=== PATIENT | female | born 1995 | race American Indian/Alaskan Native ===

== ENCOUNTER 2018-04-17 13:38 | Emergency (ER) | payer MEDICAID ==
[2018-04-17 14:01] VITALS: BP 118/79
--- NOTE | 2018-04-17 14:01 | Emergency Department Report ---
Blank Doc - Documentation Documentation: C/o of fainting about 1hour [facility]LOAD[facility] [employer] at [facility]. Reports being preg 4 1/2 months p reg. Is followed by [facility]. . Hx/o of anemia. No vag bleeding or Vag d/c. Having left abd pain. 05/29. This initial assessment diagnostic orders/clinical plan/treatment (s) is/Are sub ject change based on patient's health status, clinical progression and re- assessment by fellow clinical providers in the ED. Further treatment and work-up at subsequent clinical providers discretion. Patient/guardians urged not to elope from s their condition may be serious if not clinically assessed and managed. Inital order include: CBC, CMP and UA
[2018-04-17 14:55] LABS: Bilirubin,Urine NEG (Negative); Blood,Urine NEG (Negative); Color,Urine Yellow (Yellow); Mucus,Urine FEW /HPF; Protein,Urine <15 mg/dL mg/dL (Negative); Urobilinogen,Urine < 2.0 mg/dL (<2.0)
[2018-04-17 14:59] LABS: Basophils % (Auto) 0.2 % (0.0-1.8); Eosinophils # (Auto) 0.3 K/mm3 (0.0-0.4); Eosinophils % (Auto) 3.1 % (0.0-4.3); Lymphocytes # (Auto) 1.6 K/mm3 (1.2-5.4); Lymphocytes % (Auto) 16.6 % (13.4-35.0); Mean Corpuscular HGB Conc 32 % (30-34); Monocytes # (Auto) 0.6 K/mm3 (0.0-0.8); Monocytes % (Auto) 6.9 % (0.0-7.3); Platelet Count 303 K/mm3 (140-440); Red Blood Count 4.53 M/mm3 (3.65-5.03)
[2018-04-17 15:02] LABS: Mean Corpuscular Volume 68 fl (79-97)
[2018-04-17 15:42] LABS: Alanine Aminotransferase 9 units/L (7-56); Albumin 3.7 g/dL (3.9-5); BUN/Creatinine Ratio 18; Blood Urea Nitrogen 7 mg/dL (7-17); Hemolysis Index 5
--- NOTE | 2018-04-17 16:21 | Emergency Department Report ---
ED Syncope HPI - General Chief Complaint: Syncope Stated Complaint: 4MOS /WEAKNESS/FAINTED Time Seen by Provider: 04/17/18 13:57 Source: patient Exam Limitations: no limitations - History of Present Illness Initial Comments: This is a 22-year-old who presents to ED complaining of blurred vision and almost syncopal episode that happened about an hour ago while she was shopping at [employer]. Patient states she is approximately 18 weeks gestation. 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 She states that she has an appointment every month. Patient denies any medical condition other than anemia. She denies headache, chest pain, shortness of breath, nausea, dizziness prior to incident and at the moment. Patient states that she felt a little blurred vision prior to incident and almost felt like she was about to pass out. She denies loss of consciousness Timing/Prior Episodes: no prior history, single episode today Precipitating Factors: Positive: none, blurred vision. Negative: confusion, diaphoresis, lightheadedness, recent head trauma, rapid heart beat Context: standing Loss of Consciousness: no loss of consciousness Current Symptoms: back to normal. denies: blurred vision, chest pain, dizziness, headache, injury, lightheadedness, motionless, nausea, weakness - Related Data Allergies/Adverse Reactions: Allergies No Known Allergies Allergy (Unverified 04/17/18 13:40) Home Medications: Ambulatory Orders Ferrous Sulfate [Iron] 325 mg PO BID #30 tablet 04/17/18 ED Review of Systems ROS: Stated complaint: 4MOS /WEAKNESS/FAINTED Other details as noted in HPI Comment: All other systems reviewed and negative ED Past Medical Hx - Past Medical History Additional medical history: anemia - Social History Smoking Status: Never Smoker Substance Use Type: None - Medications Home Medications: Home Medications Medication Instructions Recorded Confirmed Last Taken Type Ferrous Sulfate [Iron] 325 mg PO BID #30 tablet 04/17/18 Unknown Rx ED Physical Exam - General Limitations: No Limitations General appearance: alert, in no apparent distress - Head Head exam: Present: atraumatic, normocephalic - Eye Eye exam: Present: normal appearance, PERRL, EOMI Pupils: Present: normal accommodation - ENT ENT exam: Present: mucous membranes moist - Neck Neck exam: Present: normal inspection, full ROM. Absent: tenderness, lymphadenopathy - Respiratory Respiratory exam: Present: normal lung sounds bilaterally. Absent: respiratory distress, wheezes, rales - Cardiovascular Cardiovascular Exam: Present: regular rate, normal rhythm. Absent: systolic murmur, diastolic murmur, rubs, gallop - GI/Abdominal GI/Abdominal exam: Present: soft, normal bowel sounds, other (gravid, heartbeat 160 bpm). Absent: distended, tenderness, mass - Extremities Exam Extremities exam: Present: normal inspection - Back Exam Back exam: Present: normal inspection - Neurological Exam Neurological exam: Present: alert, oriented X3, CN II-XII intact, normal gait. Absent: motor sensory deficit - Expanded Neurological Exam Expanded Patient oriented to: Present: person, place, time Speech: Present: fluid speech Cerebellar function: Finger to Nose: Normal - Psychiatric Psychiatric exam: Present: normal affect, normal mood - Skin Skin exam: Present: warm, dry, intact, normal color. Absent: rash ED Course Vital Signs 04/17/18 13:58 Temperature 98.1 F Pulse Rate 104 H Respiratory 18 Rate Blood Pressure 118/79 O2 Sat by Pulse 100 Oximetry ED Medical Decision Making - Lab Data Result diagrams: 04/17/18 14:32 04/17/18 14:32 - Radiology Data 22-year-old female presents with almost syncopal episode. Patient reports feeling much better. Patient is speaking in clear sentences she has no neuro deficit. Labs are within normal limits. Discussed the patient is dehydrated, take it easy and get some rest. Discussed follow-up with her ESCALATOR SERVICE MECHANIC as soon as possible. Vital signs are normal patient is in no acute or respiratory distress. Patient little tachycardic but within normal limits of normal with . Patient states she will follow-up with her ESCALATOR SERVICE MECHANIC in the next few days. I discussed with her that if symptoms worsen or new onset of symptoms return to ED immediately. Critical care attestation.: If time is entered above; I have spent that time in minutes in the direct care of this critically ill patient, excluding procedure time. ED Disposition Clinical Impression: Near syncope Disposition: DC-01 TO HOME OR SELFCARE Is pt being admited?: No Does the pt Need Aspirin: No Condition: Stable Instructions: Near Syncope (ED), Heat Exhaustion (ED) Additional Instructions: Make sure to follow up with the primary care physician as discussed. Take all your medications as you've been prescribed. If you have any worsening symptoms or develop new symptoms please return to ED immediately. Prescriptions: Ferrous Sulfate [Iron] 325 mg PO BID #30 tablet Referrals: SAKSHI BUNCH MD [Primary Care Provider] - 3-5 Days [facility] [Provider Group] - 3-5 Days Forms: Accompanied Note, Work/School Release Form(ED) Time of Disposition: 16:43
== END 2018-04-17 16:53 | disposition home or self-care (01) ==
LOC: ED 13:38
DX: O26.812 Pregnancy related exhaustion and fatigue, second trimester (principal); R55 Syncope and collapse; E86.0 Dehydration; Z3A.18 18 weeks gestation of pregnancy
CPT/HCPCS: 36415; 80053; 81001; 85025; 99283

== ENCOUNTER 2018-09-10 09:26 | Inpatient (IN) | payer MEDICAID ==
[2018-09-10] MEDS ORDERED: BICITRA PO ONE ×2 (12:15→16:16)
[2018-09-10] MEDS ORDERED: REGLAN IV ONE ×2 (12:15→16:16)
[2018-09-10] MEDS ORDERED: PEPCID IV ONE ×2 (12:15→16:16)
[2018-09-10 12:36] LABS: Basophils % (Auto) 0.1 % (0.0-1.8); Eosinophils # (Auto) 0.4 K/mm3 (0.0-0.4); Eosinophils % (Auto) 4.4 % (0.0-4.3); Hematocrit 32.4 % (30.3-42.9); Hemoglobin 10.7 gm/dl (10.1-14.3); Lymphocytes # (Auto) 1.9 K/mm3 (1.2-5.4); Lymphocytes % (Auto) 21.6 % (13.4-35.0); Mean Corpuscular HGB Conc 33 % (30-34); Mean Corpuscular Volume 75 fl (79-97); Monocytes % (Auto) 11.9 % (0.0-7.3); Platelet Count 154 K/mm3 (140-440); Red Blood Count 4.33 M/mm3 (3.65-5.03); Red Cell Distribution Width 16.9 % (13.2-15.2)
[2018-09-10] MEDS: LACTATED RINGERS 1,000 ML IV SCH ×2 (12:46→12:47)
[2018-09-10] MEDS ORDERED: PITOCin/NS 20 UNIT/1000ML DRIP 20 UNITS/1,000 ML BAG IV SCH ×3 (13:00→20:32)
[2018-09-10] MEDS ORDERED: ANCEF/STERILE WATER 2 GM/20 ML 2 GM/20 ML SYRINGE IV NR (13:00)
[2018-09-10] MEDS ORDERED: DEXMEDETOMIDINE IV ONE (15:37)
--- NOTE | 2018-09-10 15:59 | Anesthesia Consultation ---
Anesthesia Consult and Med Hx Date of service: 09/10/18 - Airway Anesthetic Teeth Evaluation: Good ROM Head & Neck: Adequate Mental/Hyoid Distance: Adequate Mallampati Class: Class II - Pulmonary Exam CTA: Yes - Cardiac Exam Cardiac Exam: RRR - Pre-Operative Health Status ASA Pre-Surgery Classification: ASA2 Proposed Anesthetic Plan: Spinal - Pulmonary Hx Asthma: No COPD: No Hx Pneumonia: No - Cardiovascular System Hx Hypertension: No - Central Nervous System Hx Seizures: No Hx Psychiatric Problems: No - Endocrine Hx Renal Disease: No Hx End Stage Renal Disease: No Hx Hypothyroidism: No Hx Hyperthyroidism: No - Hematic Hx Anemia: No Hx Sickle Cell Disease: No - Other Systems Hx Alcohol Use: No
--- NOTE | 2018-09-10 15:59 | Anesthesia Day of Surgery ---
Anesthesia Day of Surgery - Day of Surgery Patient Examined: Yes Patient H&P Reviewed: Yes Patient is NPO: Yes (pt had breakfast at 8:30 am)
--- NOTE | 2018-09-10 16:15 | History and Physical Report ---
History of Present Illness Date of examination: 09/10/18 Date of admission: 09/10/18 09:26 Chief complaint: Here for an elective repeat delivery. History of present illness: Term preg. DENICE 09/17/2018. Past History Past Medical History: no pertinent history - Obstetrical History : 2 Medications and Allergies Allergies Allergy/AdvReac Type Severity Reaction Status Date / Time No Known Allergies Allergy Unverified 04/17/18 13:40 Home Medications Medication Instructions Recorded Confirmed Last Taken Type Ferrous Sulfate [Iron 325 MG] 325 mg PO BID #30 tablet 04/17/18 09/10/18 Unknown Rx Active Meds: Active Medications Cefazolin Sodium (Ancef/Sterile Water 2 Gm/20 Ml) 2 gm in 20 mls @ 80 mls/hr IV PREOP NR; Protocol Stop: 09/10/18 23:59 Oxytocin/Sodium Chloride (Pitocin/Ns 20 Unit/1000ml Drip) 20 units in 1,000 mls @ 0 mls/hr IV TITR STEPHANIE Lactated Ringer's (Lactated Ringers) 1,000 mls @ 2,250 mls/hr IV PREOP STEPHANIE Stop: 09/11/18 13:27 Last Admin: 09/10/18 12:47 Dose: 2,250 mls/hr Documented by: Review of Systems All systems: negative - Vital Signs Vital signs: Vital Signs Pulse BP Pulse Ox 112 H 112/69 100 09/10/18 09:52 09/10/18 09:52 09/10/18 09:52 Temp Pulse Resp BP Pulse Ox 78 100/56 98 09/10/18 13:21 09/10/18 13:21 09/10/18 10:32 - Physical Exam Breasts: Positive: deferred Cardiovascular: Regular rate, Normal S1, Normal S2 Lungs: Positive: Clear to auscultation Abdomen: Positive: normal appearance - Obstetrical FHR: category 1 Results Result Diagrams: 09/10/18 12:10 Abnormal lab results 09/10/18 Range/Units 12:10 MCV 75 L (79-97) fl MCH 25 L (28-32) pg RDW 16.9 H (13.2-15.2) % [place] % (Auto) 11.9 H (0.0-7.3) % Eos % (Auto) 4.4 H (0.0-4.3) % [place] # 1.0 H (0.0-0.8) K/mm3 All other labs normal. Assessment and Plan - Patient Problems (1) Term Current Visit: Yes Status: Acute (2) Previous delivery, antepartum Current Visit: Yes Status: Acute (3) delivery w/o mention of indication, deliv, curr hospitaliz Current Visit: Yes Status: Acute
[2018-09-10] MEDS ORDERED: ZOFRAN ONE (16:45)
[2018-09-10] MEDS ORDERED: LACTATED RINGERS 1,000 ML IV SCH (17:00)
[2018-09-10] MEDS ORDERED: WATER FOR IRRIG STERILE IR ONE (17:22)
[2018-09-10] MEDS ORDERED: NACL 0.9% IR ONE (17:22)
[2018-09-10] MEDS ORDERED: NEO SYNEPHRINE ONE (17:26)
[2018-09-10] MEDS ORDERED: TORADOL ONE (17:51)
[2018-09-10] MEDS ORDERED: DILAUDID ONE (18:09)
[2018-09-10] MEDS ORDERED: VERSED ONE (18:10)
--- NOTE | 2018-09-10 19:00 | Operative Report ---
Operative Report Operative Report: Date of surgery: 2018 Admitting diagnoses: Term , previous delivery. Postoperative diagnoses: Same as above plus peritoneal adhesions. Surgeon: MD Maryan Internal Revenue Agent: Tyree Marvin CRNA Anesthesia: Spinal block Estimated blood loss: 600 mL Complications: None Findings: There was a live baby boy in cephalic presentation. Baby B weighed 6 lbs. 14 oz. with scores of 8/9. There was a thread of omental adhesions involving the inferior tip of the greater omentum to the anterior parietal peritoneum just inferior to the umbilical stump. Both ovaries and fallopian tubes as well as the uterus were grossly normal. No bowel loops are seen through the Pfannenstiel incision. Procedure in detail: The patient was taken to the operating room and given a spinal block. She was placed in the straight supine position with slight left lateral tilt. Indwelling Valdovinos catheter was inserted. Patient was prepped and the abdomen and drapes were placed. A timeout was done. With the go ahead from the anesthetic a Pfannenstiel incision was placed over the previously existing scar. This incision was carried across the subcutaneous layer to the fascia which was divided transversely. The recti muscle was stripped from the fascia using a combination of sharp and blunt dissections. By the muscles in the midline and the anterior parietal peritoneum was reached and divided. After widening the peritoneal incision the bladder blade was applied. The utero vescical cycle peritoneal flap was divided along the lower uterine segment. Uterine incision was placed transversely over the lower uterine segment. The uterine incision was controlled by extending it with bandage scissors The amniotic sac was ruptured with clear fluid. The head of the was lifted out of the false pelvis and delivered through the incision using fundal pressure. The airways were bulb suctioned beginning with the mouth. The rest of the baby was delivered by continuing fundal pressure combined with traction on the baby's mandibular processes. The umbilical cord was double clamped and divided. The baby was safely passed over to the pediatric team. The placenta was removed manually from the uterine cavity which was further explored and was empty of any placental remnants. The uterine incision was repaired in 3 layers with #1 Vicryl. The surgical plane was hemostatic. Blood and clots were cleared from the peritoneal cavity before repairing the anterior parietal peritoneum was #1 Vicryl. The fascia was repaired with #1 Vicryl. The subcutaneous layer was hemostatic allowing the skin to the closed subcuticularly with 4-0 Vicryl and a Jeffrey needle. All sponges and instruments were accounted for. The patient tolerated the procedure well. There were no complications. The estimated blood loss was about 600 mL. The patient was transferred to the recovery room in very good condition.
[2018-09-10] MEDS ORDERED: PHENERGAN PR PRN (19:04)
[2018-09-10] MEDS ORDERED: ZOFRAN IV PRN ×2 (19:04→20:32)
[2018-09-10] MEDS ORDERED: NARCAN 0.4 MG/1 ML IV PRN ×2 (19:04→20:32)
[2018-09-10] MEDS ORDERED: PHENERGAN PO PRN (19:04)
--- NOTE | 2018-09-10 19:04 | Post Anesthesia Evaluation ---
- Post Anesthesia Evaluation Patient Participated: Yes Airway Patent: Yes Stable Respiratory Function: Yes Nausea/Vomiting: No Temp > 96.8F: Yes Pain Manageable: Yes Adequeate Hydration: Yes Anesthesia Complications: No Block Receding Appropriately: Yes Patient on Ventilator: No
[2018-09-10] MEDS ORDERED: SODIUM CHLORIDE FLUSH SYRINGE 10 ML IV NR ×2 (20:00→20:32)
[2018-09-10] MEDS ORDERED: TYLENOL PO PRN (20:32)
[2018-09-10] MEDS ORDERED: LANSINOH TP PRN (20:32)
[2018-09-10] MEDS ORDERED: TUCKS PAD TP PRN (20:32)
[2018-09-10] MEDS: MORPHINE IV PRN (21:46)
[2018-09-11] MEDS: ANCEF/NS 1 GM/50 ML 1 GM/50 ML BAG IV SCH ×2 (00:21→07:32)
[2018-09-11] MEDS: TORADOL IV PRN ×2 (00:31→07:31)
[2018-09-11] MEDS: MORPHINE IV PRN (04:14)
[2018-09-11] MEDS ORDERED: D5LR 1,000 ML IV SCH (06:00)
[2018-09-11 07:24] LABS: Hematocrit 32.1 % (30.3-42.9); Hemoglobin 10.7 gm/dl (10.1-14.3)
--- NOTE | 2018-09-11 10:15 | Progress Note ---
Assessment and Plan A: POD #1 Stable P: Follow Routine PostOp Orders Anticipate D/C in 48 hours Subjective - Subjective Date of service: 09/11/18 Patient reports: appetite normal, voiding normally, pain well controlled, flatus, ambulating normally : doing well, bottle feeding Objective - Vital Signs Latest vital signs: Vital Signs Temp Pulse Resp BP BP Pulse Ox 09/11/18 08:26 98.3 F 94 H 18 111/69 99 09/11/18 04:15 81 09/11/18 04:14 18 09/11/18 00:45 79 09/11/18 00:43 98.4 F 18 122/80 09/11/18 00:31 18 09/10/18 21:46 18 09/10/18 20:15 98.0 F 73 19 133/94 09/10/18 19:45 97.7 F 73 16 123/77 100 09/10/18 19:25 67 18 120/86 100 09/10/18 19:10 70 16 118/73 100 09/10/18 18:55 72 14 116/76 100 09/10/18 18:50 80 18 117/75 100 09/10/18 18:46 97.7 F 80 18 106/65 100 09/10/18 16:26 97.3 F L 78 14 100/56 09/10/18 13:21 78 100/56 09/10/18 10:52 102 H 109/61 09/10/18 10:32 104 H 98 09/10/18 10:27 112 H 98 09/10/18 10:22 107 H 98 09/10/18 10:17 107 H 98 Intake and Output 09/10/18 09/11/18 09/11/18 22:59 06:59 14:59 Intake Total 1800 350 Output Total 500 1700 Balance 1300 -1350 Intake: IV 1800 50 ANCEF/NS 1 GM/50 ML 1 gm 50 In 50 ml @ 100 mls/hr IV Q8H [facility] Rx#:[id number] Intake, Free Water 300 Output: Urine 500 1700 Indwelling Catheter 1700 Other: Total, Output Amount 800 Estimated Blood Loss 600 - Exam Breasts: Present: normal Cardiovascular: Present: Regular rate Lungs: Present: Clear to auscultation, Normal air movement Abdomen: Present: normal appearance, soft, normal bowel sounds Uterus: Present: normal, firm, fundal height below umbilicus Incision: Present: normal, dressed - Labs Labs: Abnormal lab results 09/10/18 Range/Units 12:10 MCV 75 L (79-97) fl MCH 25 L (28-32) pg RDW 16.9 H (13.2-15.2) % [place] % (Auto) 11.9 H (0.0-7.3) % Eos % (Auto) 4.4 H (0.0-4.3) % [place] # 1.0 H (0.0-0.8) K/mm3
[2018-09-11] MEDS: IBUPROFEN PO PRN ×2 (16:13→23:02)
[2018-09-11] MEDS: NORCO 5/325 PO PRN ×2 (16:14→23:00)
[2018-09-11] MEDS: FEOSOL PO SCH (16:43)
[2018-09-12] MEDS: IBUPROFEN PO PRN ×4 (04:40→23:32)
[2018-09-12] MEDS: NORCO 5/325 PO PRN ×4 (04:40→23:31)
[2018-09-12] MEDS: FEOSOL PO SCH (10:23)
--- NOTE | 2018-09-12 10:36 | Progress Note ---
Assessment and Plan A: POD#1 s/p Repeat c/s with Tubal ligation Pain well controlled Stable Pt desires discharge home today P: Routine PO/PP orders Encouraged ambulation in room Discharge home this PM Subjective - Subjective Date of service: 09/12/18 Principal diagnosis: POD#2 s/p Repeat c/s Interval history: See H&P and operative note Patient reports: appetite normal, voiding normally, pain well controlled, flatus, ambulating normally, no bowel movement [place]: doing well, bottle feeding Objective - Vital Signs Latest vital signs: Vital Signs Temp Pulse Resp BP BP Pulse Ox 09/12/18 10:24 20 09/12/18 10:22 20 09/12/18 07:55 97.9 F 74 18 112/60 100 09/12/18 04:40 16 09/12/18 00:30 98.4 F 81 19 118/64 09/11/18 23:02 16 09/11/18 23:00 16 09/11/18 16:09 98.4 F 115 H 18 113/74 98 09/11/18 12:27 99.3 F 98 H 20 115/83 100 Intake and Output 09/11/18 09/12/18 09/12/18 23:59 07:59 15:59 Intake Total 960 Balance 960 Intake: Oral 240 Intake, Free Water 720 Other: Total, Intake Amount 240 # Voids Indwelling Catheter 1 Void 1 1 - Exam Breasts: Present: normal Cardiovascular: Present: Regular rate, Normal S1, Normal S2, No murmurs Lungs: Present: Clear to auscultation, Normal air movement Abdomen: Present: normal appearance, soft, tenderness (as expected post-op), normal bowel sounds. Absent: distention Vulva: both: normal Uterus: Present: firm, fundal height at umbilicus Extremities: Present: normal Deep Tendon Reflex Grade: Normal +2 Incision: Present: normal (Dressing removed, LTI closed with SQ sutures and Steri strips, CDI, no drainage), dry, intact
--- NOTE | 2018-09-12 10:38 | Discharge Summary ---
Providers - Providers Date of Admission: 09/10/18 09:26 Date of discharge: 09/12/18 Attending physician: NIRAV ROBB MD Primary care physician: NIRAV ROBB MD Hospitalization Reason for admission: IUP at term Delivery: Procedure: repeat low transverse Procedure details: See delivery note Incision: normal, dry, intact Other procedures: none complications: none Discharge diagnosis: IUP at term delivered baby: male Condition at discharge: Good Disposition: DC-01 TO HOME OR SELFCARE Plan - Provider Discharge Summary Activity: routine, no sex for 6 weeks, no heavy lifting 4 weeks, no strenuous exercise Diet: routine Instructions: routine Additional instructions: [] Smoking cessation referral if applicable(refer to patient education folder for contact #) [] Refer to [facility]'s [facility] Booklet Call your doctor immediately for: * Fever > 100.5 * Heavy vaginal bleeding ( >1 pad per hour) * Severe persistent headache * Shortness of breath * Reddened, hot, painful area to leg or breast * Drainage or odor from incision. * Keep incision clean and dry at all times and follow doctor's instructions regarding bathing/showering - Follow up plan Follow up: NIRAV ROBB MD [Primary Care Provider] - 7 Days
[2018-09-13] MEDS: NORCO 5/325 PO PRN (05:46)
[2018-09-13] MEDS: IBUPROFEN PO PRN (05:46)
[2018-09-13 09:27] VITALS: BP 123/86
== END 2018-09-13 13:00 | disposition home or self-care (01) | DRG 766 ==
LOC: APU 09:26 → OB 20:09
PROVIDERS: ADMIT Obstetrics & Gynecology; ATTEND Obstetrics & Gynecology
PROC: 10D00Z1 Extraction of Products of Conception, Low, Open Approach (ICD-10-PCS; principal; 2018-09-10)
DX: O34.211 Maternal care for low transverse scar from previous cesarean delivery (principal); Z3A.42 42 weeks gestation of pregnancy; Z37.0 Single live birth
CPT/HCPCS: 36415; 85014; 85018; 85025; 86592; 86850; 86900; 86901; G0378; J0690; J1170; J1885; J2250; J2270; J2370; J2405; J2590; J2765; J3490; J7120; J7121

== ENCOUNTER 2019-07-20 14:13 | Emergency (ER) | payer SELFPAY ==
[2019-07-20 14:20] VITALS: BP 125/92
[2019-07-20 16:03] LABS: Bilirubin,Urine NEG (Negative); Blood,Urine SM (Negative); Color,Urine Yellow (Yellow); Mucus,Urine FEW /HPF; Urobilinogen,Urine < 2.0 mg/dL (<2.0)
[2019-07-20 16:04] LABS: WBC,Urine > 182.0 /HPF (0.0-6.0)
[2019-07-20 16:05] LABS: HCG Qualitative,Urine Negative (Negative)
--- NOTE | 2019-07-20 16:24 | Emergency Department Report ---
ED Female HPI - General Chief complaint: Urogenital-Female Stated complaint: LEFT SIDE ABD PAIN/FEVER Time Seen by Provider: 07/20/19 15:50 Source: patient Mode of arrival: Ambulatory Limitations: No Limitations - History of Present Illness Initial comments: This is a 24-year-old -Tajik female day presents to the emergency room with suprapubic pain and right CVA pain for 3 to 4 weeks. She reports urinary frequency with associated symptoms. Her last menstrual period was July 20, 2019, G2, . Patient denies vaginal discharge, fever, chills, dysuria, nausea, vomiting, or hematuria. MD Complaint: pelvic pain Onset/Timin -: week(s) Location: suprapubic Radiation: L flank Severity: moderate Severity scale (0 -10): 6 Quality: aching Consistency: intermittent Improves with: none Worsens with: urination Are you Now?: No Last Menstrual Period: 07/20/19 EDC: 04/25/20 Associated Symptoms: denies other symptoms - Related Data Sexually active: Yes : 2 Para: 2 A: 0 Previous Rx's Medication Instructions Recorded Last Taken Type Ferrous Sulfate [Iron 325 MG] 325 mg PO BID #30 tablet 04/17/18 Unknown Rx HYDROcodone/APAP 5-325 [[place] 1 - 2 each PO Q4HR PRN #30 tablet 09/13/18 Unknown Rx 5/325] Phenazopyridine [Pyridium] 200 mg PO TID #6 tab 07/20/19 Unknown Rx Sulfamethoxazole/Trimethoprim 1 each PO BID #6 tablet 07/20/19 Unknown Rx [Bactrim DS TAB] Allergies Allergy/AdvReac Type Severity Reaction Status Date / Time No Known Allergies Allergy Verified 05/30/19 13:35 ED Review of Systems ROS: Stated complaint: LEFT SIDE ABD PAIN/FEVER Other details as noted in HPI Constitutional: denies: chills, fever Respiratory: denies: cough, shortness of breath, wheezing Cardiovascular: denies: chest pain, palpitations Gastrointestinal: abdominal pain. denies: nausea, diarrhea Genitourinary: frequency. denies: urgency, dysuria, discharge Musculoskeletal: back pain. denies: joint swelling, arthralgia Skin: denies: rash, lesions Neurological: denies: headache, weakness, paresthesias Psychiatric: denies: anxiety, depression ED Past Medical Hx - Past Medical History Previous Medical History?: No Hx Hypertension: No Hx Congestive Heart Failure: No Hx Diabetes: No Hx Deep Vein Thrombosis: No Hx Renal Disease: No Hx Sickle Cell Disease: No Hx Seizures: No Hx Asthma: No Hx COPD: No Hx HIV: No Additional medical history: anemia - Surgical History Past Surgical History?: Yes Additional Surgical History: C section - Social History Smoking Status: Current Every Day Smoker Substance Use Type: Alcohol, Marijuana - Medications Home Medications: Home Medications Medication Instructions Recorded Confirmed Last Taken Type Ferrous Sulfate [Iron 325 MG] 325 mg PO BID #30 tablet 04/17/18 09/10/18 Unknown Rx HYDROcodone/APAP 5-325 [[place] 1 - 2 each PO Q4HR PRN #30 tablet 09/13/18 Unknown Rx 5/325] Phenazopyridine [Pyridium] 200 mg PO TID #6 tab 07/20/19 Unknown Rx Sulfamethoxazole/Trimethoprim 1 each PO BID #6 tablet 07/20/19 Unknown Rx [Bactrim DS TAB] ED Physical Exam - General Limitations: No Limitations General appearance: alert, in no apparent distress - Respiratory Respiratory exam: Present: normal lung sounds bilaterally. Absent: respiratory distress - Cardiovascular Cardiovascular Exam: Present: regular rate, normal rhythm. Absent: systolic murmur, diastolic murmur, rubs, gallop - GI/Abdominal GI/Abdominal exam: Present: soft, tenderness (Suprapubic), normal bowel sounds. Absent: distended, guarding, rebound, rigid - Extremities Exam Extremities exam: Present: normal inspection - Back Exam Back exam: Present: CVA tenderness (L). Absent: CVA tenderness (R) - Neurological Exam Neurological exam: Present: alert, oriented X3, normal gait - Psychiatric Psychiatric exam: Present: normal affect, normal mood - Skin Skin exam: Present: warm, dry, intact, normal color. Absent: rash ED Course Vital Signs 07/20/19 14:17 Temperature 98.9 F Pulse Rate 119 H Respiratory 16 Rate Blood Pressure 125/92 O2 Sat by Pulse 99 Oximetry ED Medical Decision Making - Lab Data Lab Results 07/20/19 Range/Units Unknown Urine Color Yellow (Yellow) Urine Turbidity Turbid (Clear) Urine pH 5.0 (5.0-7.0) Ur Specific [place] 1.019 (1.003-1.030) Urine Protein 100 mg/dl (Negative) mg/dL Urine Glucose (UA) Neg (Negative) mg/dL Urine Ketones Neg (Negative) mg/dL Urine Blood Sm (Negative) Urine Nitrite Neg (Negative) Urine Bilirubin Neg (Negative) Urine Urobilinogen < 2.0 (<2.0) mg/dL Ur Leukocyte Esterase Lg (Negative) Urine WBC (Auto) > 182.0 H (0.0-6.0) /HPF Urine RBC (Auto) 26.0 (0.0-6.0) /HPF U Epithel Cells (Auto) 3.0 (0-13.0) /HPF Urine WBC Clumps 3+ /HPF Urine Mucus Few /HPF Urine Yeast (Budding) 2+ /HPF Urine HCG, Qual Negative (Negative) - Medical Decision Making This is a 24-year-old female who presents to the emergency room with pelvic pain, urinary frequency, and right CVA tenderness for 3 to 4 weeks. Patient is afebrile and in no acute distress. Work-up: Urinalysis and urine test. There is a small amount of blood, large amount of leukocyte Estrace, and elevated WBCs on urinalysis. Urine test negative. Abdomen nontender to be concern for suspicion of ovarian torsion, PID, gonorrhea, chlamydia, pancreatitis, appendicitis, SBO. Start Bactrim DS. Discharge home with strict return precautions discussed. Advise follow-up with primary care provider in 24 to 42 hours. Critical care attestation.: If time is entered above; I have spent that time in minutes in the direct care of this critically ill patient, excluding procedure time. ED Disposition Clinical Impression: Urinary frequency Acute cystitis Qualifiers: Hematuria presence: with hematuria Qualified Code(s): N30.01 - Acute cystitis with hematuria Disposition: TO HOME OR SELFCARE Is pt being admited?: No Condition: Stable Instructions: Urinary Tract Infection in Women (ED) Additional Instructions: Increase fluid intake to 1 L to 2 L/day. Complete antibiotics as prescribed. Prescriptions: Sulfamethoxazole/Trimethoprim [Bactrim DS TAB] 1 each PO BID #6 tablet Phenazopyridine [Pyridium] 200 mg PO TID #6 tab Referrals: [facility] [Outside] - 3-5 Days [facility] [Outside] - 3-5 Days PARISH HUTCHINS MD [Staff Physician] - 3-5 Days Forms: Work/School Release Form(ED) Time of Disposition: 16:25
== END 2019-07-20 16:55 | disposition home or self-care (01) ==
LOC: ED 14:13
DX: N30.01 Acute cystitis with hematuria (principal); F17.200 Nicotine dependence, unspecified, uncomplicated; F12.10 Cannabis abuse, uncomplicated
CPT/HCPCS: 81001; 81025; 99283

== ENCOUNTER 2019-12-02 15:54 | Emergency (ER) | payer OTHER, SELFPAY ==
[2019-12-02 16:57] VITALS: BP 143/94
== END 2019-12-02 23:10 | disposition left against medical advice (07) ==
LOC: ED 15:54
DX: Z53.21 Procedure and treatment not carried out due to patient leaving prior to being seen by health care provider (principal)

== ENCOUNTER 2019-12-09 08:00 | Emergency (ER) | payer SELFPAY ==
[2019-12-09] MEDS ORDERED: THIAMINE 100 MG, FOLIC ACID 1 MG, MULTIPLE VITAMIN INJ, ADULT 10 ML in SODIUM CHLORIDE ... IV ONE (10:00)
[2019-12-09 10:16] LABS: Basophils % (Auto) 0.4 % (0.0-1.8); Eosinophils # (Auto) 0.4 K/mm3 (0.0-0.4); Hematocrit 37.7 % (30.3-42.9); Hemoglobin 11.9 gm/dl (10.1-14.3); Lymphocytes # (Auto) 1.3 K/mm3 (1.2-5.4); Lymphocytes % (Auto) 17.5 % (13.4-35.0); Mean Corpuscular HGB Conc 32 % (30-34); Monocytes # (Auto) 0.4 K/mm3 (0.0-0.8); Platelet Count 316 K/mm3 (140-440); Red Blood Count 5.41 M/mm3 (3.65-5.03); Red Cell Distribution Width 14.8 % (13.2-15.2)
[2019-12-09 10:21] LABS: Mean Corpuscular Volume 70 fl (79-97)
[2019-12-09 10:48] LABS: Alanine Aminotransferase 10 units/L (7-56); Albumin 4.4 g/dL (3.9-5); BUN/Creatinine Ratio 14; Bilirubin,Direct < 0.2 mg/dL (0-0.2); Blood Urea Nitrogen 7 mg/dL (7-17); Calcium 8.9 mg/dL (8.4-10.2); Hemolysis Index 8
[2019-12-09 11:30] LABS: Amphetamine Screen,Urine PRESUMPTIVE POSITIVE; Benzodiazepines Screen,Urine PRESUMPTIVE NEGATIVE; Cannabinoid Screen,Urine PRESUMPTIVE NEGATIVE; Cocaine Screen,Urine PRESUMPTIVE NEGATIVE; Methadone Screen,Urine PRESUMPTIVE NEGATIVE; Opiate Screen,Urine PRESUMPTIVE NEGATIVE
[2019-12-09 11:34] LABS: Bacteria,Urine 1+ /HPF (Negative); Bilirubin,Urine NEG (Negative); Blood,Urine MOD (Negative); Color,Urine Yellow (Yellow); Mucus,Urine 2+ /HPF; Protein,Urine <15 mg/dL mg/dL (Negative); Urobilinogen,Urine < 2.0 mg/dL (<2.0)
[2019-12-09 12:22] VITALS: BP 139/105
--- NOTE | 2019-12-09 15:16 | Emergency Department Report ---
ED General Adult HPI - General Chief complaint: Alcohol Stated complaint: ETOH Time Seen by Provider: 12/09/19 09:05 Source: EMS Mode of arrival: Stretcher Limitations: No Limitations - History of Present Illness Initial comments: This is a 24-year-old female who was "drinking all night and thinks something was put in her drink." She was apparently inebriated at the time of my encounter. She got up and walked around the emergency department until the nurse she was going to leave. I told the nurse to make sure that she had mental capacity to do so. She later decided to go rest in her gurney and she did so for several hours. She is offering no acute complaints. She states that she is ready to go home at this time. - Related Data Previous Rx's Medication Instructions Recorded Last Taken Type Ferrous Sulfate [Iron 325 MG] 325 mg PO BID #30 tablet 04/17/18 Unknown Rx HYDROcodone/APAP 5-325 [[place] 1 - 2 each PO Q4HR PRN #30 tablet 09/13/18 Unknown Rx 5/325] Phenazopyridine [Pyridium] 200 mg PO TID #6 tab 07/20/19 Unknown Rx Sulfamethoxazole/Trimethoprim 1 each PO BID #6 tablet 07/20/19 Unknown Rx [Bactrim DS TAB] cefUROXime [Ceftin] 250 mg PO Q12H #14 tablet 12/09/19 Unknown Rx Allergies Allergy/AdvReac Type Severity Reaction Status Date / Time No Known Allergies Allergy Verified 05/30/19 13:35 ED Review of Systems ROS: Stated complaint: ETOH Other details as noted in HPI Comment: Unobtainable due to pts medical conditions ED Past Medical Hx - Past Medical History Previous Medical History?: No Hx Hypertension: No Hx Congestive Heart Failure: No Hx Diabetes: No Hx Deep Vein Thrombosis: No Hx Renal Disease: No Hx Sickle Cell Disease: No Hx Seizures: No Hx Asthma: No Hx COPD: No Hx HIV: No Additional medical history: anemia, alcohol abuse - Surgical History Additional Surgical History: C section - Social History Smoking Status: Current Every Day Smoker Substance Use Type: Alcohol - Medications Home Medications: Home Medications Medication Instructions Recorded Confirmed Last Taken Type Ferrous Sulfate [Iron 325 MG] 325 mg PO BID #30 tablet 04/17/18 09/10/18 Unknown Rx HYDROcodone/APAP 5-325 [[place] 1 - 2 each PO Q4HR PRN #30 tablet 09/13/18 Unknown Rx 5/325] Phenazopyridine [Pyridium] 200 mg PO TID #6 tab 07/20/19 Unknown Rx Sulfamethoxazole/Trimethoprim 1 each PO BID #6 tablet 07/20/19 Unknown Rx [Bactrim DS TAB] cefUROXime [Ceftin] 250 mg PO Q12H #14 tablet 12/09/19 Unknown Rx ED Physical Exam - General Limitations: No Limitations General appearance: alert, in no apparent distress - Head Head exam: Present: atraumatic, normocephalic - Eye Eye exam: Present: normal appearance. Absent: scleral icterus - ENT ENT exam: Present: mucous membranes moist - Neck Neck exam: Present: normal inspection - Respiratory Respiratory exam: Present: normal lung sounds bilaterally. Absent: respiratory distress - Cardiovascular Cardiovascular Exam: Present: regular rate, normal rhythm. Absent: systolic murmur, diastolic murmur, rubs, gallop - GI/Abdominal GI/Abdominal exam: Present: soft, normal bowel sounds. Absent: distended, tenderness, guarding, rebound, rigid - Extremities Exam Extremities exam: Present: normal inspection - Back Exam Back exam: Present: normal inspection - Neurological Exam Neurological exam: Present: altered, CN II-XII intact (As testable). Absent: motor sensory deficit - Psychiatric Psychiatric exam: Present: normal affect, normal mood - Skin Skin exam: Present: warm, dry, intact, normal color. Absent: rash ED Course Vital Signs 12/09/19 12/09/19 12/09/19 08:47 09:00 09:30 Temperature 97.8 F Pulse Rate 70 84 Respiratory 19 17 14 Rate Blood Pressure 112/75 104/73 Blood Pressure 139/96 [Left] O2 Sat by Pulse 98 98 98 Oximetry 12/09/19 12/09/19 10:00 12:01 Temperature Pulse Rate 115 H Respiratory 24 Rate Blood Pressure 119/93 139/105 Blood Pressure [Left] O2 Sat by Pulse 100 99 Oximetry - Reevaluation(s) Reevaluation #1: Patient was given a banana bag. I elected to give her a gram of Rocephin. Her compliance with antibiotics would be unpredictable. Urine culture will be sent. She is referred to [facility]. She is appropriate for outpatient disposition. 12/09/19 15:21 ED Medical Decision Making - Lab Data Result diagrams: 12/09/19 09:40 12/09/19 09:40 Laboratory Results - last 24 hr 12/09/19 12/09/19 12/09/19 09:40 09:40 09:40 WBC 7.5 RBC 5.41 H Hgb 11.9 Hct 37.7 MCV 70 L MCH 22 L MCHC 32 RDW 14.8 Plt Count 316 Lymph % (Auto) 17.5 [place] % (Auto) 5.0 Eos % (Auto) 5.0 H Baso % (Auto) 0.4 Lymph # (Auto) 1.3 [place] # (Auto) 0.4 Eos # (Auto) 0.4 Baso # (Auto) 0.0 Seg Neutrophils % 72.1 H Seg Neutrophils # 5.4 Sodium 141 Potassium 3.9 Chloride 105.7 Carbon Dioxide 20 L Anion Gap 19 BUN 7 Creatinine 0.5 L Estimated GFR > 60 BUN/Creatinine Ratio 14 Glucose 88 Calcium 8.9 Magnesium 2.20 Total Bilirubin 0.20 Direct Bilirubin < 0.2 AST 16 ALT 10 Alkaline Phosphatase 59 Total Protein 7.7 Albumin 4.4 Albumin/Globulin Ratio 1.3 Urine Color Urine Turbidity Urine pH Ur Specific [place] Urine Protein Urine Glucose (UA) Urine Ketones Urine Blood Urine Nitrite Urine Bilirubin Urine Urobilinogen Ur Leukocyte Esterase Urine WBC (Auto) Urine RBC (Auto) U Epithel Cells (Auto) Urine Bacteria (Auto) Urine Mucus Urine Opiates Screen Urine Methadone Screen Ur Barbiturates Screen Ur Phencyclidine Scrn Ur Amphetamines Screen U Benzodiazepines Scrn Urine Cocaine Screen U Marijuana (THC) Screen Drugs of Abuse Note Plasma/Serum Alcohol 0.16 H 12/09/19 12/09/19 11:07 11:07 WBC RBC Hgb Hct MCV MCH MCHC RDW Plt Count Lymph % (Auto) [place] % (Auto) Eos % (Auto) Baso % (Auto) Lymph # (Auto) [place] # (Auto) Eos # (Auto) Baso # (Auto) Seg Neutrophils % Seg Neutrophils # Sodium Potassium Chloride Carbon Dioxide Anion Gap BUN Creatinine Estimated GFR BUN/Creatinine Ratio Glucose Calcium Magnesium Total Bilirubin Direct Bilirubin AST ALT Alkaline Phosphatase Total Protein Albumin Albumin/Globulin Ratio Urine Color Yellow Urine Turbidity Cloudy Urine pH 6.0 Ur Specific [place] 1.006 Urine Protein <15 mg/dl Urine Glucose (UA) Neg Urine Ketones Neg Urine Blood Mod Urine Nitrite Pos Urine Bilirubin Neg Urine Urobilinogen < 2.0 Ur Leukocyte Esterase Lg Urine WBC (Auto) 175.0 H Urine RBC (Auto) 12.0 U Epithel Cells (Auto) 1.0 Urine Bacteria (Auto) 1+ Urine Mucus 2+ Urine Opiates Screen Presumptive negative Urine Methadone Screen Presumptive negative Ur Barbiturates Screen Presumptive negative Ur Phencyclidine Scrn Presumptive negative Ur Amphetamines Screen Presumptive positive U Benzodiazepines Scrn Presumptive negative Urine Cocaine Screen Presumptive negative U Marijuana (THC) Screen Presumptive negative Drugs of Abuse Note Disclamer Plasma/Serum Alcohol Critical care attestation.: If time is entered above; I have spent that time in minutes in the direct care of this critically ill patient, excluding procedure time. ED Disposition Clinical Impression: Alcohol abuse, Amphetamine abuse UTI (urinary tract infection) Qualifiers: Urinary tract infection type: site unspecified Hematuria presence: without hematuria Qualified Code(s): N39.0 - Urinary tract infection, site not specified Disposition: TO HOME OR SELFCARE Is pt being admited?: No Does the pt Need Aspirin: No Condition: Stable Instructions: Urinary Tract Infection in Women (ED), Abuse of Alcohol (ED), Polysubstance Abuse (ED) Additional Instructions: Follow-up with the [facility]. Return to the emergency department any acute change or problem. Follow-up on your urine culture in 2 to 3 days. Rx antibiotic. Prescriptions: cefUROXime [Ceftin] 250 mg PO Q12H #14 tablet Referrals: PRIMARY CARE [Primary Care Provider] - 3-5 Days [facility] [Outside] - 3-5 Days [facility] [Outside] - 3-5 Days [facility] [Provider Group] - 3-5 Days Time of Disposition: 15:22
[2019-12-09] MEDS ORDERED: LIDOCAINE-MPF (1%) 10 MG/1 ML VIAL 5 ML INFILTRATI ONE (15:24)
== END 2019-12-09 16:15 | disposition home or self-care (01) ==
LOC: ED 08:00
DX: N39.0 Urinary tract infection, site not specified (principal); F15.10 Other stimulant abuse, uncomplicated
CPT/HCPCS: 36415; 80048; 80076; 80307; 81001; 82962; 83735; 85025; 96365; 96366; 96372; 99284; J0696; J3411; J7030; 80320; G0480

== ENCOUNTER 2021-10-31 09:38 | Inpatient (IN) | payer SELFPAY ==
[2021-10-31] MEDS ORDERED: BICITRA ORAL LIQD 30ML PO ONE (15:26)
[2021-10-31] MEDS ORDERED: METOCLOPRAMIDE 10 MG/2 ML INJ IV ONE (15:26)
[2021-10-31] MEDS ORDERED: FAMOTIDINE 20 MG/2 ML INJ IV ONE (15:26)
--- NOTE | 2021-10-31 15:26 | History and Physical Report ---
History of Present Illness Date of examination: 10/31/21 Date of admission: 10/31/21 09:38 Chief complaint: Here for an elective repeat . History of present illness: . X2 c/s. DENICE 11/03/21. Gest diabetes. Past History Past Surgical History: section - Obstetrical History Expected Date of Delivery: 11/03/21 Actual Gestation: 39 Week(s) 4 Day(s) : 5 Medications and Allergies Allergies Allergy/AdvReac Type Severity Reaction Status Date / Time No Known Allergies Allergy Verified 05/30/19 13:35 Home Medications Medication Instructions Recorded Confirmed Last Taken Type Ferrous Sulfate [Iron 325 MG] 325 mg PO BID #30 tablet 04/17/18 09/10/18 Unknown Rx HYDROcodone/APAP 5-325 [[place] 1 - 2 each PO Q4HR PRN #30 tablet 09/13/18 Unknown Rx 5/325] Phenazopyridine [Pyridium] 200 mg PO TID #6 tab 07/20/19 Unknown Rx Sulfamethoxazole/Trimethoprim 1 each PO BID #6 tablet 07/20/19 Unknown Rx [Bactrim DS TAB] cefUROXime [Ceftin] 250 mg PO Q12H #14 tablet 12/09/19 Unknown Rx Active Meds: Active Medications Acetaminophen (Acetaminophen 325 Mg Tab) 650 mg PO Q4H PRN PRN Reason: Pain, Mild (1-3) Butorphanol Tartrate (Butorphanol 2 Mg/1 Ml Inj) 2 mg IV Q2H PRN PRN Reason: Pain , Severe (7-10) Carboprost Tromethamine (Carboprost Tromethamine 250 Mcg/1 Ml Inj) 250 mcg IM ONCE NR Stop: 10/31/21 23:59 Ephedrine Sulfate (Ephedrine Sulfate 50 Mg/1 Ml Inj) 10 mg IV Q2M PRN PRN Reason: Hypotension Lactated Ringer's (Lactated Ringers) 1,000 mls @ 125 mls/hr IV DIRECT STEPHANIE Oxytocin/Sodium Chloride (Pitocin/Ns 30 Unit/500ml) 30 units in 500 mls @ 40 mls/hr IV TITR STEPHANIE; Protocol Lidocaine (Lidocaine (2%) 20 Mg/1 Ml Vial 20 Ml Mdv) 20 ml INFILTRATI ONCE NR Stop: 10/31/21 23:59 Loperamide HCl (Loperamide 2 Mg Cap) 2 mg PO ONCE NR Stop: 10/31/21 23:59 Methylergonovine Maleate (Methylergonovine Maleate 0.2 Mg/Ml Vial) 0.2 mg IM ONCE PRN PRN Reason: Uterine Bleeding Mineral Oil (Mineral Oil 30 Ml Oral Liqd) 30 ml PO QHS PRN PRN Reason: Constipation Misoprostol (Misoprostol 200 Mcg Tab) 800 mcg NE ONCE PRN PRN Reason: Uterine Bleeding Naloxone HCl (Naloxone 0.4 Mg/1 Ml Inj) 0.1 mg IV Q2MIN PRN PRN Reason: Res Rate </= 8 or 02 SAT < 92% Ondansetron HCl (Ondansetron 4 Mg/2 Ml Inj) 4 mg IV Q8H PRN PRN Reason: Nausea And Vomiting Oxytocin (Oxytocin 10 Unit/1 Ml Inj) 10 unit IM ONCE PRN PRN Reason: Uterine Bleeding Terbutaline Sulfate (Terbutaline 1 Mg/1 Ml Inj) 0.25 mg SUB-Q ONCE PRN PRN Reason: Hyperstimulation/Hypertonicity Review of Systems All systems: negative - Vital Signs Vital signs: Vital Signs Pulse BP 106 H 127/81 10/31/21 10:06 10/31/21 10:06 Temp Pulse Resp BP Pulse Ox 98.9 F 106 H 18 127/81 10/31/21 10:08 10/31/21 10:06 10/31/21 10:08 10/31/21 10:06 - Physical Exam Lungs: Positive: Normal air movement Abdomen: Positive: normal appearance, soft, distention, normal bowel sounds Uterus: Positive: enlarged, normal contour Extremities: Positive: normal Deep Tendon Reflex Grade: Normal +2 - Obstetrical FHR: auscultation normal Results All other labs normal. Assessment and Plan - Patient Problems (1) Previous delivery affecting Current Visit: Yes Status: Acute (2) Gestational diabetes Current Visit: Yes Status: Acute (3) Peritoneal adhesions Current Visit: Yes Status: Acute (4) 39 weeks gestation of Current Visit: Yes Status: Acute Plan to address problem: Repeat imminent.
[2021-10-31] MEDS: LACTATED RINGERS 1,000 ML IV SCH ×3 (15:50→21:48)
[2021-10-31] MEDS ORDERED: METHYLERGONOVINE MALEATE 0.2 MG/ML VIAL IM NR (16:00)
[2021-10-31] MEDS ORDERED: ceFAZolin/Water 2 GM/20 ML 2 GM/20 ML SYRINGE IV NR (16:00)
[2021-10-31] MEDS ORDERED: ACETAMINOPHEN 325 MG TAB PO PRN ×2 (16:00→18:13)
[2021-10-31] MEDS ORDERED: NALOXONE 0.4 MG/1 ML INJ IV PRN ×3 (16:00→18:50)
[2021-10-31] MEDS ORDERED: ONDANSETRON 4 MG/2 ML INJ IV PRN ×3 (16:00→18:50)
[2021-10-31] MEDS ORDERED: miSOPROStol 200 MCG TAB PR NR (16:00)
[2021-10-31] MEDS ORDERED: CARBOPROST TROMETHAMINE 250 MCG/1 ML INJ IM NR (16:00)
[2021-10-31] MEDS ORDERED: LIDOCAINE (2%) 20 MG/1 ML VIAL 20 ML MDV INFILTRATI NR (16:00)
[2021-10-31] MEDS ORDERED: OXYTOCIN 10 UNIT/1 ML INJ IM NR (16:00)
[2021-10-31] MEDS ORDERED: LOPERAMIDE 2 MG CAP PO NR (16:00)
[2021-10-31] MEDS ORDERED: ePHEDrine SULFATE 50 MG/1 ML INJ IV PRN (16:00)
[2021-10-31] MEDS ORDERED: OXYTOCIN DRIP 30 UNITS/500 ML BAG IV SCH ×2 (16:00→19:00)
[2021-10-31] MEDS ORDERED: TERBUTALINE 1 MG/1 ML INJ SUB-Q NR (16:00)
[2021-10-31] MEDS ORDERED: BUTORPHANOL 2 MG/1 ML INJ IV PRN (16:00)
[2021-10-31 16:30] LABS: Basophils % (Auto) 0.1 % (0.0-1.8); Eosinophils # (Auto) 0.2 K/mm3 (0.0-0.4); Eosinophils % (Auto) 2.6 % (0.0-4.3); Hematocrit 38.2 % (30.3-42.9); Hemoglobin 12.2 gm/dl (10.1-14.3); Lymphocytes % (Auto) 31.3 % (13.4-35.0); Mean Corpuscular HGB Conc 32 % (30-34); Mean Corpuscular Volume 75 fl (79-97); Monocytes # (Auto) 0.7 K/mm3 (0.0-0.8); Monocytes % (Auto) 10.4 % (0.0-7.3); Platelet Count 152 K/mm3 (140-440); Red Cell Distribution Width 16.4 % (13.2-15.2)
[2021-10-31] MEDS ORDERED: PHENYLEPHRINE/NS 1,000 MCG/10 ML SYRINGE (OR USE) IV ONE (16:40)
[2021-10-31] MEDS ORDERED: SODIUM CHLORIDE 0.9% 100 ML ONE (16:40)
[2021-10-31] MEDS ORDERED: BUPIVACAINE/PF (0.5%) 5 MG/1 ML 30 ML VIAL INFILTRATI ONE (16:40)
[2021-10-31] MEDS ORDERED: ONDANSETRON 4 MG/2 ML INJ ONE (16:40)
[2021-10-31] MEDS ORDERED: ePHEDrine SULFATE 50 MG/1 ML INJ ONE (16:40)
[2021-10-31] MEDS ORDERED: IBUPROFEN 600 MG TAB PO PRN (18:13)
[2021-10-31] MEDS ORDERED: MORPHINE 4 MG/1 ML INJ IV PRN ×2 (18:13→18:50)
[2021-10-31] MEDS ORDERED: KETOROLAC 30 MG/1 ML INJ IV PRN (18:13)
[2021-10-31] MEDS ORDERED: MORPHINE 2 MG/1 ML INJ IV PRN (18:13)
[2021-10-31] MEDS ORDERED: SIMETHICONE 80 MG CHEW TAB PO PRN (18:13)
[2021-10-31] MEDS ORDERED: LANOLIN/ZINC/DIMETHICONE (LANSINOH) 7 GM TP PRN (18:13)
[2021-10-31] MEDS ORDERED: SENNOSIDES 8.6 MG TAB PO PRN (18:13)
[2021-10-31] MEDS ORDERED: WITCH HAZEL/ GLYCERIN PAD TP PRN (18:13)
--- NOTE | 2021-10-31 18:23 | Operative Report ---
Operative Report Operative Report: Date of surgery: 10/31/2021 Preoperative diagnoses: 39+4 weeks, 2 previous section, gestational diabetes, peritoneal adhesions Postoperative diagnoses: The same. Operation: Lower segment transverse delivery, lysis of adhesions Surgeon:Angelika Steinberg MD Retail Presentation Specialist: Benoit Shrestha CRNA Anesthesia: Spinal block Quantitative blood loss: 520 mL Complications: None Findings: Live baby boy, minimal amniotic fluid, fresh meconium, weight 7 pounds 4 ounces, Apgars 8/9. There were taut bands of peritoneal adhesions bridging the greater omentum to the anterior aspect of the uterus. The uterus was otherwise an unremarkable gravid structure. The fallopian tubes and ovaries were grossly normal. Procedure in detail: The patient was taken to the operating room and given a spinal block. Patient was placed in the straight supine position and a Valdovinos catheter was inserted. The patient was prepped in the abdomen. The drapes were placed. A timeout was done. With the go ahead from the route sales manager, a Pfannenstiel incision was made. This incision was carried across the subcutaneous layer to the fascia which was also divided transversely. The recti abdominis muscle flaps were stripped from the fascia using a combination of blunt and sharp dissections. The muscles were in the midline to gain access to the anterior parietal peritoneum which was divided after excluding any underlying viscera. The access to the peritoneal cavity was then widened by manual stretching. The bladder blade was applied. The utero vesicle peritoneal flap was divided transversely allowing the bladder to be displaced caudally. The uterine incision was placed in the lower segment transversely. The uterine incision was carried to the decidual layer. The uterine incision was extended on both sides using the bandage scissors. The amniotic sac was ruptured with clear fluid. The head was lifted out of the false maternal pelvis and delivered through the incision using fundal pressure. The airways were bulb suctioned beginning with the mouth. Continuing fundal pressure combined with traction on the mandibular processes of the jaw delivered the rest of the baby. The umbilical cord was double clamped and divided. The baby was carefully transferred to the pediatric team. The placenta was manually removed from the uterine cavity. The uterine cavity was explored and was empty of any placental remnants. The uterine incision was repaired in 2 layers with #1 Vicryl. The strands of adhesions described under the findings were divided using Bovie. The surgical line on the uterus and greater omentum were hemostatic. Blood and clots were cleared from the perit marks cavity. The anterior parietal peritoneum was repaired with #1 Vicryl. The fascia was repaired with #1 Vicryl. The subcutaneous layer was made hemostatic using the Bovie before the skin was closed subcuticularly with 4-0 Vicryl. There were no complications. The quantitative blood loss was 520 mL. All sponges and instrument counts were correct. Patient was safely transferred to the recovery room.
[2021-10-31] MEDS ORDERED: PROMETHAZINE 25 MG RECT SUPP PR PRN (18:50)
[2021-10-31] MEDS ORDERED: HYDROmorphone 1 MG/1 ML INJ IV PRN ×2 (18:50)
[2021-10-31] MEDS ORDERED: PROMETHAZINE 25 MG TAB PO PRN (18:50)
--- NOTE | 2021-10-31 18:53 | Anesthesia Consultation ---
Anesthesia Consult and Med Hx Date of service: 10/31/21 - Airway Anesthetic Teeth Evaluation: Good ROM Head & Neck: Adequate Mental/Hyoid Distance: Adequate Mallampati Class: Class II Intubation Access Assessment: Probably Good - Pulmonary Exam CTA: Yes - Cardiac Exam Cardiac Exam: RRR - Pre-Operative Health Status ASA Pre-Surgery Classification: ASA2 Proposed Anesthetic Plan: Spinal Nerve Block: Se Tap - Pulmonary Hx Smoking: No Hx Asthma: Yes Hx Respiratory Symptoms: No SOB: No COPD: No Home Oxygen Therapy: No Hx Pneumonia: No Hx Sleep Apnea: No - Cardiovascular System Hx Hypertension: Yes Hx Coronary Artery Disease: No Hx Heart Attack/AMI: No Hx Angina: No Hx Percutaneous Transluminal Coronary Angioplasty (PTCA): No Hx Cardia Arrhythmia: No Hx Pacemaker: No Hx Internal Defibrillator: No Hx Valvular Heart Disease: No Hx Heart Murmur: No Hx Peripheral Vascular Disease: No - Central Nervous System Hx Neuromuscular Disorder: No Hx Seizures: No CVA: No Hx Back Pain: No Hx Psychiatric Problems: Yes - Gastrointestinal Hx Ulcer: No Hx Gastroesophageal Reflux Disease: No - Endocrine Hx Renal Disease: No Hx End Stage Renal Disease: No Hx Cirrhosis: No Hx Liver Disease: No Hx Insulin Dependent Diabetes: No Hx Non-Insulin Dependent Diabetes: No Hx Thyroid Disease: No Hx Hypothyroidism: No Hx Hyperthyroidism: No - Hematic Hx Anemia: Yes Hx Sickle Cell Disease: No - Other Systems Hx Alcohol Use: No Hx Substance Use: No Hx Cancer: No Hx Obesity: Yes
--- NOTE | 2021-10-31 18:54 | Progress Note ---
Spinal Anesthesia Block - Spinal Anesthesia Block Start Time: 16:48 Stop Time: 16:55 Performed by:: MARÍA ELENA NAILS Procedure: The patient was placed in a sitting position on the OR table and monitors applied. A timeout was performed immediately prior to the start of the procedure. The patient was Prepped and draped in a sterile fashion and the skin was localized with 3 mL 1% lidocaine at L[4]-L[5] interspace. An introducer was placed into the back between L4-L5 and a 25g spinal needle was advanced into the intrathecal space until clear, free flowing CSF was observed. 1.8cc of 0.75% hyperbaric bupivacaine + 0.5mcg Precedex was injected into the intrathecal space and the spinal needle was removed. The patient tolerated the procedure well and there were no immediate complications noted.
--- NOTE | 2021-10-31 18:54 | Anesthesia Day of Surgery ---
Anesthesia Day of Surgery - Day of Surgery Patient Examined: Yes Patient H&P Reviewed: Yes Patient is NPO: Yes Beta Blockers: No Cardiac Clearance: No Pulmonary Clearance: No Wilfred's Test: N/A
--- NOTE | 2021-10-31 18:55 | Progress Note ---
Regional Anesthesia Block - Regional Anesthesia Block Start Time: 18:25 Stop Time: 18:33 Performed By:: MARÍA ELENA NAILS Procedure: During the pre-op interview the patient agreed to and signed a consent for a TAP block for post surgical pain management. After her C/S was completed a time out was performed prior to the start of the procedure. The Trans Abdominal Plane was identified bilaterally via ultrasound. The skin was prepped bilaterally with chlorhexidine and a 22g stimuplex needle was advanced to the area between the internal oblique muscle and the trans abdominal plane. Marcaine 0.25% 30mlwas injected under ultrasound guidance on the left and right side. Negative aspiration every 5mL, There was no change in the patients heart rate or rhythm and the patient tolerated the procedure well. No apparent complications were observed.
[2021-10-31] MEDS ORDERED: MAGNESIUM SULFATE 4 GM/100 ML BAG IV ONE ×3 (21:02→21:41)
[2021-10-31] MEDS ORDERED: MAGNESIUM SULFATE 40GM/1000ML 40 GM/1,000 ML BAG IV ONE (21:14)
[2021-10-31] MEDS ORDERED: LACTATED RINGERS 1,000 ML ONE (21:21)
[2021-10-31] MEDS ORDERED: MINERAL OIL 30 ML ORAL LIQD PO PRN (22:00)
[2021-10-31] MEDS ORDERED: MAGNESIUM SULFATE 40GM/1000ML 40 GM/1,000 ML BAG IV SCH (22:00)
[2021-11-01] MEDS: KETOROLAC 30 MG/1 ML INJ IV PRN ×2 (00:14→06:57)
[2021-11-01 00:33] LABS: Amphetamine Screen,Urine PRESUMPTIVE NEGATIVE; Benzodiazepines Screen,Urine PRESUMPTIVE NEGATIVE; Cannabinoid Screen,Urine PRESUMPTIVE NEGATIVE; Cocaine Screen,Urine PRESUMPTIVE NEGATIVE; Methadone Screen,Urine PRESUMPTIVE NEGATIVE; Opiate Screen,Urine PRESUMPTIVE NEGATIVE
--- NOTE | 2021-11-01 01:38 | Consultation ---
History of Present Illness - Reason for Consult Consult date: 11/01/21 Chest pain Requesting physician: NIRAV ROBB - History of Present Illness Consult called on 26-year-old -Spanish female with no significant past medical history who is status post section after gestation of 39 weeks and 4 day complaint of chest pain. Chest pain was said to have started a few hours ago. Chest pain is substernal and worse upon taking a deep breath. She denies any nausea vomiting, no headache or dizziness and no diaphoresis. She has had some mild shortness of breath. She denies any fever or chills, no cough. According to the nursing staff, patient also has a remote history of cocaine abuse. Patient admits that she smoked tobacco prior to . Patient denies calf swelling or pain. She has known history of DVT and pulmonary embolism in aunt and also her mother. Past History Past Medical History: No medical history Past Surgical History: Social history: smoking (Former smoker) Family history: other (History of DVT and family) Medications and Allergies Allergies Allergy/AdvReac Type Severity Reaction Status Date / Time No Known Allergies Allergy Verified 05/30/19 13:35 Home Medications Medication Instructions Recorded Confirmed Last Taken Type Ferrous Sulfate [Iron 325 MG] 325 mg PO BID #30 tablet 04/17/18 09/10/18 Unknown Rx HYDROcodone/APAP 5-325 [Kathleen 1 - 2 each PO Q4HR PRN #30 tablet 09/13/18 Unknown Rx 5/325] Phenazopyridine [Pyridium] 200 mg PO TID #6 tab 07/20/19 Unknown Rx Sulfamethoxazole/Trimethoprim 1 each PO BID #6 tablet 07/20/19 Unknown Rx [Bactrim DS TAB] cefUROXime [Ceftin] 250 mg PO Q12H #14 tablet 12/09/19 Unknown Rx Active Meds: Active Medications Acetaminophen (Acetaminophen 325 Mg Tab) 650 mg PO Q4H PRN PRN Reason: Fever >100.5/GALLARDO Hydrocodone Bitart/Acetaminophen (Hydrocodone/Acetaminophen 5-325 Mg Tab) 1 each PO Q6H PRN PRN Reason: Pain, Moderate (4-6) Hydromorphone HCl (Hydromorphone 1 Mg/1 Ml Inj) 0.5 mg IV Q5M PRN PRN Reason: BREAK Hydromorphone HCl (Hydromorphone 1 Mg/1 Ml Inj) 0.5 mg IV Q4H PRN PRN Reason: breakthrough pain > 7/10 Oxytocin/Sodium Chloride (Pitocin/Ns 30 Unit/500ml) 30 units in 500 mls @ 40 mls/hr IV TITR STEPHANIE; Protocol Magnesium Sulfate (Magnesium Sulfate 40gm/1000ml) 40 gm in 1,000 mls @ 25 mls/ hr IV ONCE ONE Stop: 11/02/21 13:13 Last Admin: 10/31/21 22:15 Dose: 1 gm/hr, 25 mls/hr Ibuprofen (Ibuprofen 600 Mg Tab) 600 mg PO Q6H PRN PRN Reason: Pain, Mild (1-3) Ibuprofen (Ibuprofen 800 Mg Tab) 800 mg PO Q6H PRN PRN Reason: Pain, Moderate (4-6) Ketorolac Tromethamine (Ketorolac 30 Mg/1 Ml Inj) 15 mg IV Q6H PRN PRN Reason: Pain, Mild (1-3) Stop: 11/05/21 18:12 Ketorolac Tromethamine (Ketorolac 30 Mg/1 Ml Inj) 30 mg IV Q6H PRN PRN Reason: Pain, Moderate (4-6) Stop: 11/05/21 18:12 Last Admin: 11/01/21 00:14 Dose: 30 mg Labetalol HCl (Labetalol 200 Mg Tab) 200 mg PO TID STEPHANIE Morphine Sulfate (Morphine 2 Mg/1 Ml Inj) 2 mg IV Q4H PRN PRN Reason: Pain, Moderate (4-6) Last Admin: 10/31/21 21:25 Dose: 2 mg Morphine Sulfate (Morphine 4 Mg/1 Ml Inj) 4 mg IV Q4H PRN PRN Reason: Pain , Severe (7-10) Morphine Sulfate (Morphine 4 Mg/1 Ml Inj) 2.5 mg IV Q15M PRN PRN Reason: BREAK Multi-Ingredient Ointment (Lanolin/Zinc/Dimethicone (Lansinoh) 7 Gm) 1 applic TP PRN PRN PRN Reason: dryness/cracking Multivitamins/Iron/Calcium ( Kht82-Fi Fumarate-Folic Acid Vit Tab) 1 each PO QDAY STEPHANIE Naloxone HCl (Naloxone 0.4 Mg/1 Ml Inj) 0.1 mg IV Q2MIN PRN PRN Reason: Res Rate </= 8 or 02 SAT < 92% Naloxone HCl (Naloxone 0.4 Mg/1 Ml Inj) 0.2 mg IV Q2MIN PRN PRN Reason: Res Rate </= 8 or 02 SAT < 92% Ondansetron HCl (Ondansetron 4 Mg/2 Ml Inj) 4 mg IV Q8H PRN PRN Reason: Nausea And Vomiting Ondansetron HCl (Ondansetron 4 Mg/2 Ml Inj) 4 mg IV Q8H PRN PRN Reason: Nausea And Vomiting Promethazine HCl (Promethazine 25 Mg Tab) 25 mg PO Q6H PRN PRN Reason: Nausea And Vomiting Promethazine HCl (Promethazine 25 Mg Rect Supp) 25 mg NM Q6H PRN PRN Reason: Nausea And Vomiting Senna (Sennosides 8.6 Mg Tab) 17.2 mg PO QHS PRN PRN Reason: Constipation Simethicone (Simethicone 80 Mg Chew Tab) 80 mg PO Q6H PRN PRN Reason: Gas pain Sodium Chloride (Sodium Chloride 0.9% 10 Ml Flush Syringe) 10 ml IV PRN NR Stop: 11/10/21 23:59 Sodium Chloride (Sodium Chloride 0.9% 10 Ml Flush Syringe) 10 ml IV PRN NR Stop: 11/10/21 23:59 Witch Celia/Glycerin (Witch Celia/ Glycerin Pad) 1 each TP PRN PRN PRN Reason: Hemorrhoids/cleansing/soothing Review of Systems All systems: negative (As stated in the HPI) Exam - Constitutional Vitals: Temp Pulse Resp BP Pulse Ox 98.6 F 103 H 24 145/90 100 10/31/21 19:45 11/01/21 01:30 10/31/21 19:45 11/01/21 01:25 11/01/21 01:30 General appearance: Present: no acute distress, well-nourished - EENT Eyes: Present: PERRL, EOM intact. Absent: scleral icterus ENT: hearing intact, clear oral mucosa, dentition normal - Neck Neck: Present: supple, normal ROM - Respiratory Respiratory effort: normal Respiratory: bilateral: CTA - Cardiovascular Rhythm: regular Heart Sounds: Present: S1 & S2. Absent: gallop, systolic murmur, diastolic murmur, rub, click - Extremities Extremities: no ischemia, pulses intact, pulses symmetrical, No edema, normal temperature, normal color, Full ROM Peripheral Pulses: within normal limits - Abdominal General gastrointestinal: Present: soft, tender (Mild tenderness around surgical site), distended (Mildly distended), normal bowel sounds. Absent: mass - Integumentary Integumentary: Present: clear, warm, dry, normal turgor. Absent: rash - Musculoskeletal Musculoskeletal: strength equal bilaterally - Psychiatric Psychiatric: appropriate mood/affect, intact judgment & insight, memory intact, cooperative - Neurologic Neurologic: CNII-XII intact, no focal deficits, moves all extremities Results - Labs CBC & Chem 7: 11/01/21 09:04 Labs: Abnormal lab results 10/31/21 Range/Units 15:50 RBC 5.10 H (3.65-5.03) M/mm3 MCV 75 L (79-97) fl MCH 24 L (28-32) pg RDW 16.4 H (13.2-15.2) % [place] % (Auto) 10.4 H (0.0-7.3) % Assessment and Plan Assessment: 1. Chest pain-pleuritic in nature 2. Patient is status post section Plan: 1. We will check D-dimer and troponin level 2. Schedule for stat chest x-ray.CTA chest -if needed. 3. Continue prn analgesic medications 4. We will follow-up on the above DVT prophylaxis: Sequential compression device CODE STATUS: Full code
--- NOTE | 2021-11-01 01:50 | XRay Report ---
CHEST 1 VIEW INDICATION / CLINICAL INFORMATION: CHEST PAIN. COMPARISON: None available. FINDINGS: SUPPORT DEVICES: None. HEART / MEDIASTINUM: Heart size appears within normal limits for technique. LUNGS / PLEURA: Lungs are clear for degree of inspiration and technique utilized. BONES: No significant osseous abnormality. ADDITIONAL FINDINGS: No significant additional findings. IMPRESSION: 1. No active cardiopulmonary disease. Signer Name: Nelson Dick II, MD Signed: 11/01/2021 1:46 AM Workstation Name: [id number]
--- NOTE | 2021-11-01 05:03 | Cat Scan Report ---
CTA CHEST WITH CONTRAST INDICATION / CLINICAL INFORMATION: Chest Pain- R/O Pulmonary Embolism 100ml of [id number]. TECHNIQUE: Axial CT images were obtained through the chest after injection of IV contrast. 3 plane VT P and/or 3D reconstructions were produced. All CT scans at this location are performed using CT dose reduction for ALARA by means of automated exposure control. COMPARISON: None available. FINDINGS: VASCULAR FINDINGS: PULMONARY ARTERY: Pulmonary artery is normal in size. No filling defects are present compatible with pulmonary artery embolus.. THORACIC AORTA: No significant abnormality. CORONARY ARTERY CALCIFICATION: Absent -- None. NONVASCULAR FINDINGS: LOWER NECK: Soft tissues and musculature of the lower neck demonstrate no significant abnormality. Th e thyroid demonstrates no significant abnormality. HEART: No significant abnormality. MEDIASTINUM / SABRINA: No significant abnormality. Residual thymus. ESOPHAGUS: No significant abnormality. LYMPH NODES: No adenopathy within the axilla, mediastinum, or sabrina. LUNGS: No acute air space or interstitial disease. PLEURA: No pleural effusion. No pneumothorax. THORACIC SOFT TISSUES: No significant abnormality of the chest wall or upper thoracic musculature. BONES: No significant skeletal abnormalities. ADDITIONAL CHEST FINDINGS: Bilateral dense breast stroma. UPPER ABDOMEN: Upper pole cysts suggested right kidney. IMPRESSION: 1. No CT evidence for pulmonary embolism. 2. No acute findings. Signer Name: Nelson Dick II, MD Signed: 11/01/2021 4:58 AM Workstation Name: [id number]
[2021-11-01] MEDS ORDERED: LACTATED RINGERS 1,000 ML ONE (06:39)
[2021-11-01] MEDS ORDERED: LACTATED RINGERS 1,000 ML IV SCH (07:00)
--- NOTE | 2021-11-01 08:31 | Progress Note ---
Assessment and Plan A: POD # 1 - stable BP WNL P: Will move to Mother/baby once Mag is complete Subjective - Subjective Date of service: 11/01/21 Principal diagnosis: Repeat Interval history: Feeling ok, no complaints Patient reports: appetite normal : in NICU Objective - Vital Signs Latest vital signs: Vital Signs Temp Pulse Resp BP Pulse Ox 11/01/21 08:27 103 H 96 11/01/21 08:22 102 H 96 11/01/21 08:17 99 H 97 11/01/21 08:12 96 H 97 11/01/21 08:10 94 H 111/60 11/01/21 08:07 95 H 95 11/01/21 08:02 92 H 96 11/01/21 07:57 89 96 11/01/21 07:55 93 H 106/58 11/01/21 07:52 94 H 96 11/01/21 07:47 96 H 96 11/01/21 07:42 94 H 96 11/01/21 07:40 88 116/62 11/01/21 07:37 94 H 96 11/01/21 07:32 88 96 11/01/21 07:27 92 H 96 11/01/21 07:25 88 114/66 11/01/21 07:22 89 96 11/01/21 07:17 95 H 96 11/01/21 07:12 104 H 96 11/01/21 07:10 92 H 126/72 11/01/21 07:08 94 H 98 11/01/21 07:02 94 H 98 11/01/21 06:57 102 H 98 11/01/21 06:55 95 H 131/63 11/01/21 06:53 104 H 98 11/01/21 06:48 97 H 98 11/01/21 06:43 96 H 97 11/01/21 06:40 96 H 125/75 11/01/21 06:37 104 H 98 11/01/21 06:33 92 H 97 11/01/21 06:28 97 H 97 11/01/21 06:25 106 H 104/57 11/01/21 06:23 95 H 95 11/01/21 06:18 92 H 96 11/01/21 06:13 93 H 95 11/01/21 06:10 109 H 105/62 11/01/21 06:08 99 H 95 11/01/21 06:03 95 H 96 11/01/21 06:01 95 H 94 11/01/21 05:58 94 H 94 11/01/21 05:55 100 H 104/58 11/01/21 05:53 96 H 95 11/01/21 05:49 98 H 94 11/01/21 05:47 96 H 95 11/01/21 05:43 95 H 95 11/01/21 05:40 96 H 117/65 11/01/21 05:38 93 H 96 11/01/21 05:32 97 H 95 11/01/21 05:27 94 H 95 11/01/21 05:25 96 H 116/70 11/01/21 05:23 95 H 95 11/01/21 05:18 91 H 95 11/01/21 05:13 89 97 11/01/21 05:10 83 123/77 11/01/21 05:08 90 98 11/01/21 05:03 90 97 11/01/21 04:58 97 H 98 11/01/21 04:55 86 120/75 11/01/21 04:53 97 H 98 11/01/21 04:48 91 H 98 11/01/21 04:43 92 H 98 11/01/21 04:40 96 H 136/82 11/01/21 04:38 94 H 99 11/01/21 03:54 94 H 98 11/01/21 03:49 89 97 11/01/21 03:45 94 H 95 11/01/21 03:39 90 97 11/01/21 03:35 98 H 98 11/01/21 03:30 94 H 97 11/01/21 03:25 94 H 120/68 97 11/01/21 03:20 89 97 11/01/21 03:15 98 H 98 11/01/21 03:10 88 129/81 98 11/01/21 03:05 96 H 97 11/01/21 03:00 98 H 97 11/01/21 02:55 93 H 141/88 98 11/01/21 02:50 98 H 98 11/01/21 02:47 98.1 F 11/01/21 02:45 100 H 98 11/01/21 02:40 107 H 139/66 97 11/01/21 02:39 136/77 09/13/22 02:35 104 H 98 11/01/21 02:30 102 H 97 11/01/21 02:25 91 H 136/77 97 11/01/21 02:20 105 H 97 11/01/21 02:15 99 H 97 11/01/21 02:10 103 H 132/66 98 11/01/21 02:05 106 H 97 11/01/21 02:00 104 H 100 11/01/21 01:55 109 H 132/76 100 11/01/21 01:50 112 H 100 11/01/21 01:45 100 H 100 11/01/21 01:40 110 H 146/89 100 11/01/21 01:35 101 H 100 11/01/21 01:30 103 H 100 11/01/21 01:25 99 H 145/90 100 11/01/21 01:20 103 H 100 11/01/21 01:15 93 H 100 11/01/21 01:10 101 H 138/88 100 11/01/21 01:05 105 H 99 11/01/21 01:00 97 H 100 11/01/21 00:56 100 H 136/89 11/01/21 00:55 96 H 135/93 99 11/01/21 00:50 102 H 99 11/01/21 00:45 100 H 99 11/01/21 00:40 98 H 142/94 97 11/01/21 00:35 100 H 97 11/01/21 00:30 86 98 11/01/21 00:25 87 148/97 98 11/01/21 00:20 98 H 97 11/01/21 00:14 101 H 98 11/01/21 00:10 100 H 154/99 98 11/01/21 00:05 100 H 97 11/01/21 00:00 98 H 98 10/31/21 23:55 95 H 151/92 98 10/31/21 23:50 92 H 99 10/31/21 23:45 104 H 97 10/31/21 23:40 88 143/85 99 10/31/21 23:34 83 99 10/31/21 23:30 86 97 10/31/21 23:25 98 H 137/78 98 10/31/21 23:19 105 H 98 10/31/21 23:15 102 H 97 10/31/21 23:10 104 H 142/93 98 10/31/21 23:04 99 H 97 10/31/21 23:00 95 H 97 10/31/21 22:55 99 H 143/92 96 10/31/21 22:50 104 H 98 10/31/21 22:45 98 H 97 10/31/21 22:40 88 139/89 99 10/31/21 22:35 94 H 96 10/31/21 22:30 101 H 97 10/31/21 22:25 100 H 138/87 98 10/31/21 22:20 97 H 96 10/31/21 22:15 103 H 98 10/31/21 22:10 96 H 147/93 97 10/31/21 22:05 104 H 98 10/31/21 22:00 102 H 98 10/31/21 21:55 96 H 148/94 99 10/31/21 21:50 86 99 10/31/21 21:45 91 H 99 10/31/21 21:40 84 144/85 99 10/31/21 21:35 97 H 98 10/31/21 21:30 95 H 99 10/31/21 21:25 94 H 140/80 99 10/31/21 21:20 95 H 97 10/31/21 19:45 98.6 F 86 24 148/88 99 10/31/21 19:38 142/89 10/31/21 19:30 85 21 151/91 100 10/31/21 19:15 84 21 129/82 98 10/31/21 18:45 89 16 140/89 10/31/21 18:30 97.9 F 86 18 122/78 100 10/31/21 16:24 98.7 F 10/31/21 15:57 104 H 134/97 10/31/21 10:08 98.9 F 18 10/31/21 10:06 106 H 127/81 Intake and Output 10/31/21 11/01/21 11/01/21 22:59 06:59 14:59 Intake Total 2745.833 Output Total 1100 1900 Balance 1645.833 -1900 Intake: IV 2745.833 Lactated Ringers 1,000 ml 745.833 @ 125 mls/hr IV DIRECT STEPHANIE Rx#:[id number] Output: Urine 1100 1900 Indwelling Catheter 500 1900 Uretheral (Valdovinos) 500 Other: Total, Output Amount 500 500 - Exam Breasts: Present: deferred Cardiovascular: Present: Regular rate Lungs: Present: Clear to auscultation Abdomen: Present: soft Uterus: Present: fundal height below umbilicus Extremities: Present: normal Deep Tendon Reflex Grade: Normal +2 Incision: Present: dressed - Labs Labs: Abnormal lab results 10/31/21 11/01/21 11/01/21 Range/Units 15:50 02:26 02:26 RBC 5.10 H (3.65-5.03) M/mm3 MCV 75 L (79-97) fl MCH 24 L (28-32) pg RDW 16.4 H (13.2-15.2) % [place] % (Auto) 10.4 H (0.0-7.3) % D-Dimer 2416.08 H (0-234) ng/mlDDU Magnesium 3.20 H (1.7-2.3) mg/dL
[2021-11-01 09:18] LABS: Hematocrit 35.7 % (30.3-42.9); Hemoglobin 11.5 gm/dl (10.1-14.3)
--- NOTE | 2021-11-01 12:32 | Event Note ---
Date: 11/01/21 Patient seen at bedside. Currently without chest pain. Troponin negative x1 and we discussed the findings of the CTA of the chest. Patient has no complaints at this time. We will follow up in the morning.
[2021-11-01] MEDS: IBUPROFEN 800 MG TAB PO PRN ×2 (13:13→21:52)
[2021-11-01] MEDS: HYDROcodone/ACETAMINOPHEN 5-325 MG TAB PO PRN (17:59)
[2021-11-02] MEDS: IBUPROFEN 800 MG TAB PO PRN ×2 (04:22→16:45)
--- NOTE | 2021-11-02 08:42 | Progress Note ---
Assessment and Plan A: POD # 2 - stable Baby in NICU P: Plan discharge in am Discharge instructions given Subjective - Subjective Date of service: 11/02/21 Principal diagnosis: Repeat POD # 2 Interval history: Feeling ok, no complaints Patient reports: appetite normal, flatus : doing well Objective - Vital Signs Latest vital signs: Vital Signs Temp Pulse Resp BP BP Pulse Ox Pulse Ox 11/02/21 08:31 83 117/83 11/02/21 04:22 20 11/02/21 04:21 98.7 F 99 H 20 95/51 98 11/01/21 22:50 98.6 F 98 H 20 130/91 97 97 11/01/21 22:29 98.7 F 93 H 138/91 11/01/21 22:10 97 11/01/21 18:00 108 H 97 11/01/21 17:55 101 H 96 11/01/21 17:52 106 H 92 11/01/21 17:50 100 H 96 11/01/21 17:45 102 H 98 11/01/21 17:40 104 H 110/59 97 11/01/21 17:35 103 H 97 11/01/21 17:30 108 H 97 11/01/21 17:25 104 H 125/62 98 11/01/21 17:20 104 H 98 11/01/21 17:18 97 H 93 11/01/21 17:15 103 H 98 11/01/21 17:10 107 H 138/73 97 11/01/21 17:05 102 H 96 11/01/21 17:04 103 H 92 11/01/21 17:00 102 H 99 11/01/21 16:55 101 H 135/72 97 11/01/21 16:50 102 H 98 11/01/21 16:45 100 H 97 11/01/21 16:40 101 H 130/71 98 11/01/21 16:35 102 H 98 11/01/21 16:30 105 H 99 11/01/21 16:28 116 H 94 11/01/21 16:25 107 H 135/76 97 11/01/21 16:22 107 H 89 11/01/21 16:20 108 H 95 11/01/21 16:16 110 H 93 11/01/21 16:15 110 H 95 11/01/21 16:10 112 H 133/66 89 11/01/21 16:05 107 H 97 11/01/21 16:00 97.9 F 114 H 93 11/01/21 15:59 112 H 91 11/01/21 15:55 116 H 134/91 96 11/01/21 15:54 113 H 91 11/01/21 15:50 113 H 96 11/01/21 15:48 115 H 92 11/01/21 15:45 107 H 97 11/01/21 15:40 109 H 123/77 97 11/01/21 15:35 102 H 96 11/01/21 15:30 108 H 97 11/01/21 15:25 101 H 123/79 98 11/01/21 15:21 107 H 93 11/01/21 15:20 106 H 96 11/01/21 15:15 107 H 92 11/01/21 15:10 106 H 128/81 97 11/01/21 15:05 101 H 98 11/01/21 15:02 107 H 92 11/01/21 15:00 98 H 97 11/01/21 14:55 108 H 126/77 97 11/01/21 14:54 109 H 89 11/01/21 14:50 103 H 98 11/01/21 14:45 103 H 98 11/01/21 14:40 99 H 121/80 98 11/01/21 14:35 104 H 96 11/01/21 14:30 103 H 97 11/01/21 14:25 101 H 119/68 98 11/01/21 14:23 112 H 90 11/01/21 14:20 109 H 98 11/01/21 14:15 106 H 96 11/01/21 14:12 107 H 88 11/01/21 14:10 106 H 137/88 97 11/01/21 14:05 109 H 99 11/01/21 14:01 108 H 92 11/01/21 14:00 104 H 97 11/01/21 13:55 108 H 130/85 94 11/01/21 13:54 111 H 93 11/01/21 13:50 100 H 97 11/01/21 13:48 106 H 94 11/01/21 13:45 107 H 97 11/01/21 13:40 99 H 122/83 96 11/01/21 13:35 99 H 97 11/01/21 13:30 103 H 98 11/01/21 13:25 107 H 129/86 98 11/01/21 13:20 105 H 92 11/01/21 13:16 100 H 132/85 11/01/21 13:15 100 H 96 11/01/21 12:16 39 L 0 L 11/01/21 12:00 98.6 F 11/01/21 11:23 51 L 94 11/01/21 11:17 114 H 97 11/01/21 11:12 111 H 97 11/01/21 11:10 110 H 118/58 11/01/21 11:07 115 H 97 11/01/21 11:02 112 H 98 11/01/21 10:57 111 H 98 11/01/21 10:55 112 H 114/53 11/01/21 10:52 114 H 98 11/01/21 10:47 113 H 98 11/01/21 10:42 114 H 98 11/01/21 10:40 109 H 131/60 11/01/21 10:37 115 H 98 11/01/21 10:32 111 H 98 11/01/21 10:27 107 H 97 11/01/21 10:25 103 H 131/59 11/01/21 10:22 108 H 98 11/01/21 10:17 110 H 97 11/01/21 10:12 107 H 97 11/01/21 10:10 104 H 131/58 11/01/21 10:07 104 H 97 11/01/21 10:02 107 H 97 11/01/21 09:57 102 H 99 11/01/21 09:55 103 H 142/82 11/01/21 09:52 102 H 98 11/01/21 09:47 108 H 98 11/01/21 09:42 100 H 98 11/01/21 09:40 100 H 113/62 11/01/21 09:37 105 H 98 11/01/21 09:32 104 H 97 11/01/21 09:27 109 H 98 11/01/21 09:25 101 H 109/64 11/01/21 09:22 112 H 97 11/01/21 09:17 104 H 98 11/01/21 09:12 92 H 97 11/01/21 09:10 95 H 106/62 11/01/21 09:07 99 H 97 11/01/21 09:02 99 H 97 11/01/21 08:57 95 H 97 11/01/21 08:55 95 H 116/66 11/01/21 08:52 99 H 97 11/01/21 08:47 100 H 96 11/01/21 08:42 100 H 98 Intake and Output 11/01/21 11/02/21 11/02/21 22:59 06:59 14:59 Intake Total 360 Balance 360 Intake: Intake, Free Water 360 Other: # Voids Void 1 - Exam Breasts: Present: deferred Cardiovascular: Present: Regular rate Lungs: Present: Clear to auscultation Abdomen: Present: soft Vulva: both: normal Uterus: Present: fundal height below umbilicus Deep Tendon Reflex Grade: Normal +2 Incision: Present: intact - Labs Labs: Abnormal lab results 11/01/21 11/01/21 Range/Units 09:04 14:06 Magnesium 3.30 H 3.30 H (1.7-2.3) mg/dL
--- NOTE | 2021-11-02 08:46 | Discharge Summary ---
Providers - Providers Date of Admission: 10/31/21 09:38 Date of discharge: 11/03/21 Attending physician: BEAR GARCIA MD Primary care physician: BEAR GARCIA MD Hospitalization Reason for admission: section Delivery: Procedure: section complications: none Discharge diagnosis: IUP at term delivered [place] baby: male Hospital course: Had C/O chest pain-neg work up Condition at discharge: Good Disposition: 01 HOME / SELF CARE / HOMELESS Plan - Provider Discharge Summary Activity: routine, no sex for 6 weeks, no strenuous exercise Diet: routine Instructions: routine Additional instructions: [] Smoking cessation referral if applicable(refer to patient education folder for contact #) [] Refer to [facility]'s [facility] Booklet Call your doctor immediately for: * Fever > 100.5 * Heavy vaginal bleeding ( >1 pad per hour) * Severe persistent headache * Shortness of breath * Reddened, hot, painful area to leg or breast * Drainage or odor from incision. * Keep incision clean and dry at all times and follow doctor's instructions regarding bathing/showering - Follow up plan Follow up: BAER GARCIA MD [Primary Care Provider] - 14 Days
[2021-11-02] MEDS: PRENATAL VIT27-FE FUMARATE-FOLIC ACID VIT TAB PO SCH (09:58)
--- NOTE | 2021-11-02 11:01 | Progress Note ---
Assessment and Plan Assessment and plan: #Noncardiac chest pain-resolved -CT angiogram of the chest negative for PE and other acute findings -Troponin negative; D-dimer elevation likely secondary to recent /surg ical procedure -Patient currently chest pain-free -No intervention necessary at this time #status post section -management per primary Thank you for this consult, we will sign off at this time. History Interval history: No acute events overnight. Patient reports that she is no longer having chest pain. She denies shortness of breath or pleuritic chest pain. Possible discharge today or tomorrow. Hospitalist Physical - Physical exam Narrative exam: GENERAL: Well-developed well-nourished. In no acute distress. HEENT: Normocephalic. Atraumatic. NECK: Supple. CHEST/LUNGS: CTAB on room air HEART/CARDIOVASCULAR: RRR. No murmur, rubs or gallops appreciated. ABDOMEN: +BS. NT/ND. NEURO: No focal motor deficit. Follows all commands. MUSCULOSKELETAL: No joint effusion EXTREMITIES: No cyanosis, clubbing or edema. PSYCH: Cooperative. - Constitutional Vitals: Temp Pulse Resp BP Pulse Ox 98.3 F 83 18 117/83 98 11/02/21 07:47 11/02/21 08:31 11/02/21 07:47 11/02/21 08:31 11/02/21 08:15 General appearance: Present: no acute distress, well-nourished HEART Score - HEART Score Troponin: Troponin T < 0.010 ng/mL (0.00-0.029) 11/01/21 02:26 Results - Labs CBC & Chem 7: 11/01/21 09:04 Labs: Laboratory Last Values WBC 6.4 K/mm3 (4.5-11.0) 10/31/21 15:50 RBC 5.10 M/mm3 (3.65-5.03) H 10/31/21 15:50 Hgb 11.5 gm/dl (10.1-14.3) 11/01/21 09:04 Hct 35.7 % (30.3-42.9) 11/01/21 09:04 MCV 75 fl (79-97) L 10/31/21 15:50 MCH 24 pg (28-32) L 10/31/21 15:50 MCHC 32 % (30-34) 10/31/21 15:50 RDW 16.4 % (13.2-15.2) H 10/31/21 15:50 Plt Count 152 K/mm3 (140-440) 10/31/21 15:50 Lymph % (Auto) 31.3 % (13.4-35.0) 10/31/21 15:50 [place] % (Auto) 10.4 % (0.0-7.3) H 10/31/21 15:50 Eos % (Auto) 2.6 % (0.0-4.3) 10/31/21 15:50 Baso % (Auto) 0.1 % (0.0-1.8) 10/31/21 15:50 Lymph # (Auto) 2.0 K/mm3 (1.2-5.4) 10/31/21 15:50 [place] # (Auto) 0.7 K/mm3 (0.0-0.8) 10/31/21 15:50 Eos # (Auto) 0.2 K/mm3 (0.0-0.4) 10/31/21 15:50 Baso # (Auto) 0.0 K/mm3 (0.0-0.1) 10/31/21 15:50 Seg Neutrophils % 55.6 % (40.0-70.0) 10/31/21 15:50 Seg Neutrophils # 3.6 K/mm3 (1.8-7.7) 10/31/21 15:50 D-Dimer 2416.08 ng/mlDDU (0-234) H 11/01/21 02:26 POC Glucose 100 mg/dL (70-105) 11/01/21 06:54 Magnesium 3.30 mg/dL (1.7-2.3) H 11/01/21 14:06 Troponin T < 0.010 ng/mL (0.00-0.029) 11/01/21 02:26 Urine Opiates Screen Presumptive negative 10/31/21 23:52 Urine Methadone Screen Presumptive negative 10/31/21 23:52 Ur Barbiturates Screen Presumptive negative 10/31/21 23:52 Ur Phencyclidine Scrn Presumptive negative 10/31/21 23:52 Ur Amphetamines Screen Presumptive negative 10/31/21 23:52 U Benzodiazepines Scrn Presumptive negative 10/31/21 23:52 Urine Cocaine Screen Presumptive negative 10/31/21 23:52 U Marijuana (THC) Screen Presumptive negative 10/31/21 23:52 Drugs of Abuse Note Disclamer 10/31/21 23:52 Blood Type O POSITIVE 10/31/21 15:50 Antibody Screen Negative 10/31/21 15:50 Active Medications - Current Medications Current Medications: Generic Name Dose Route Start Last Admin Trade Name Freq PRN Reason Stop Dose Admin Acetaminophen 650 mg 10/31/21 18:13 Acetaminophen 325 Mg Tab PO Q4H PRN Fever >100.5/GALLARDO Hydrocodone Bitart/Acetaminophen 1 each 10/31/21 18:13 11/01/21 17:59 Hydrocodone/Acetaminophen 5-325 Mg Tab PO 1 each Q6H PRN Administration Pain, Moderate (4-6) Hydromorphone HCl 0.5 mg 10/31/21 18:50 Hydromorphone 1 Mg/1 Ml Inj IV Q5M PRN BREAK Hydromorphone HCl 0.5 mg 10/31/21 18:50 Hydromorphone 1 Mg/1 Ml Inj IV Q4H PRN breakthrough pain > 7/10 Oxytocin/Sodium Chloride 30 units in 500 mls @ 40 mls/hr 10/31/21 19:00 Pitocin/Ns 30 Unit/500ml IV TITR STEPHANIE Protocol Magnesium Sulfate 40 gm in 1,000 mls @ 25 mls/hr 10/31/21 21:14 10/31/21 22:15 Magnesium Sulfate 40gm/1000ml IV 11/02/21 13:13 1 gm/hr ONCE ONE 25 mls/hr Administration 1 GM/HR Lactated Ringer's 1,000 mls @ 125 mls/hr 11/01/21 07:00 Lactated Ringers IV DIRECT STEPHANIE Ibuprofen 600 mg 10/31/21 18:13 11/02/21 09:59 Ibuprofen 600 Mg Tab PO 600 mg Q6H PRN Administration Pain, Mild (1-3) Ibuprofen 800 mg 10/31/21 18:13 11/02/21 04:22 Ibuprofen 800 Mg Tab PO 800 mg Q6H PRN Administration Pain, Moderate (4-6) Ketorolac Tromethamine 15 mg 10/31/21 18:13 Ketorolac 30 Mg/1 Ml Inj IV 11/05/21 18:12 Q6H PRN Pain, Mild (1-3) Ketorolac Tromethamine 30 mg 10/31/21 18:13 11/01/21 06:57 Ketorolac 30 Mg/1 Ml Inj IV 11/05/21 18:12 30 mg Q6H PRN Administration Pain, Moderate (4-6) Labetalol HCl 200 mg 11/01/21 03:00 11/02/21 08:31 Labetalol 200 Mg Tab PO 200 mg TID STEPHANIE Administration Morphine Sulfate 2 mg 10/31/21 18:13 10/31/21 21:25 Morphine 2 Mg/1 Ml Inj IV 2 mg Q4H PRN Administration Pain, Moderate (4-6) Morphine Sulfate 4 mg 10/31/21 18:13 Morphine 4 Mg/1 Ml Inj IV Q4H PRN Pain , Severe (7-10) Morphine Sulfate 2.5 mg 10/31/21 18:50 Morphine 4 Mg/1 Ml Inj IV Q15M PRN BREAK Multi-Ingredient Ointment 1 applic 10/31/21 18:13 Lanolin/Zinc/Dimethicone (Lansinoh) 7 Gm TP PRN PRN dryness/cracking Multivitamins/Iron/Calcium 1 each 11/01/21 10:00 11/02/21 09:58 [id number] Fumarate-Folic Acid Vit Tab PO 1 each QDAY STEPHANIE Administration Naloxone HCl 0.1 mg 10/31/21 18:13 Naloxone 0.4 Mg/1 Ml Inj IV Q2MIN PRN Res Rate </= 8 or 02 SAT < 92% Naloxone HCl 0.2 mg 10/31/21 18:50 Naloxone 0.4 Mg/1 Ml Inj IV Q2MIN PRN Res Rate </= 8 or 02 SAT < 92% Ondansetron HCl 4 mg 10/31/21 18:13 Ondansetron 4 Mg/2 Ml Inj IV Q8H PRN Nausea And Vomiting Ondansetron HCl 4 mg 10/31/21 18:50 Ondansetron 4 Mg/2 Ml Inj IV Q8H PRN Nausea And Vomiting Promethazine HCl 25 mg 10/31/21 18:50 Promethazine 25 Mg Tab PO Q6H PRN Nausea And Vomiting Promethazine HCl 25 mg 10/31/21 18:50 Promethazine 25 Mg Rect Supp [place] Q6H PRN Nausea And Vomiting Senna 17.2 mg 10/31/21 18:13 Sennosides 8.6 Mg Tab PO QHS PRN Constipation Simethicone 80 mg 10/31/21 18:13 11/01/21 22:32 Simethicone 80 Mg Chew Tab PO 80 mg Q6H PRN Administration Gas pain Sodium Chloride 10 ml 10/31/21 19:00 Sodium Chloride 0.9% 10 Ml Flush Syringe IV 11/10/21 23:59 PRN NR Sodium Chloride 10 ml 10/31/21 19:00 Sodium Chloride 0.9% 10 Ml Flush Syringe IV 11/10/21 23:59 PRN NR Witch Celia/Glycerin 1 each 10/31/21 18:13 Witch Celia/ Glycerin Pad TP PRN PRN Hemorrhoids/cleansing/soothing
[2021-11-02] MEDS: HYDROcodone/ACETAMINOPHEN 5-325 MG TAB PO PRN (22:25)
[2021-11-03] MEDS: IBUPROFEN 800 MG TAB PO PRN ×2 (03:55→19:26)
[2021-11-03] MEDS: PRENATAL VIT27-FE FUMARATE-FOLIC ACID VIT TAB PO SCH (09:46)
[2021-11-03] MEDS: HYDROcodone/ACETAMINOPHEN 5-325 MG TAB PO PRN ×2 (09:48→16:02)
--- NOTE | 2021-11-03 19:36 | Event Note ---
Date: 11/03/21 (1430) Received a call from Rn pt bp elevated to 150's/99. She was given her labetalol 200mg at 1350, instructed to give an additional 100mg and recheck bp in 30-45 min. Rn states pt has been up and down from her room to the NICU the entire morning. Advise to decrease stimulation.
--- NOTE | 2021-11-03 19:42 | Event Note ---
Date: 11/03/21 (5127) Rn called Patient bp still elevated, she is still going in and out of the NICU. bp 140's/90's. changed labetalol back to 200mg bid and added nifedipine 30mg po daily.
--- NOTE | 2021-11-03 21:12 | Event Note ---
Date: 11/03/21 (2044) Patient not in her room at this time currently in NICU. I spoke to pt while in NICU, discussed adding nifedipine to her regimen of bp meds. stressed the need for her to rest to her bp. Her partner agrees, she will go back to her room to take her medication and rest for the night.
[2021-11-03] MEDS: NIFEdipine XL 30 MG TAB PO SCH (21:32)
[2021-11-04] MEDS: HYDROcodone/ACETAMINOPHEN 5-325 MG TAB PO PRN (03:58)
[2021-11-04 08:21] VITALS: BP 136/85
[2021-11-04] MEDS: NIFEdipine XL 30 MG TAB PO SCH (09:29)
[2021-11-04] MEDS: IBUPROFEN 800 MG TAB PO PRN (09:29)
[2021-11-04] MEDS: PRENATAL VIT27-FE FUMARATE-FOLIC ACID VIT TAB PO SCH (09:30)
== END 2021-11-04 10:00 | disposition home or self-care (01) | DRG 788 ==
LOC: APU 09:38 → LD 21:13 → OB 11-01 22:30
PROVIDERS: ADMIT Obstetrics & Gynecology Gynecology; ATTEND Obstetrics & Gynecology Gynecology
PROC: 10D00Z1 Extraction of Products of Conception, Low, Open Approach (ICD-10-PCS; principal; 2021-10-31)
PROC: 0DNW0ZZ Release Peritoneum, Open Approach (ICD-10-PCS; 2021-10-31)
DX: O34.211 Maternal care for low transverse scar from previous cesarean delivery (principal); O24.429 Gestational diabetes mellitus in childbirth, unspecified control; Z3A.39 39 weeks gestation of pregnancy; Z37.0 Single live birth; K66.0 Peritoneal adhesions (postprocedural) (postinfection); Z20.822 Contact with and (suspected) exposure to COVID-19; O99.62 Diseases of the digestive system complicating childbirth; O99.214 Obesity complicating childbirth
CPT/HCPCS: 36415; 71045; 71275; 80307; 82962; 83735; 84484; 85014; 85018; 85025; 85379; 86850; 86900; 86901; 88307; G0378; J3490; J7121; C9250; J1885; J2270; J2370; J2405; J2765; J3475; J7120; Q9967